=== PATIENT | female | born 1965 | race Caucasian/White ===

== ENCOUNTER 2017-02-28 19:59 | Emergency (ER) | payer OTHER ==
[~2017-02-28] VITALS: Ht 154.9 cm; Wt 95.2 kg
--- OUTSIDE RECORDS SUMMARY | ~2017-02-28 | XMS ---
Demographics + + + | Address | [address] | | | [place] [address] | + + + | Preferred Language | Unknown | + + + | Marital Status | Unknown | + + + | Gnosticist Affiliation | Unknown | + + + | Race | Unknown | + + + | Ethnic Group | Unknown | + + + Author + + + | Author | [facility] | + + + | Organization | [facility] | + + + | Address | [address] | | | [place] [address] | + + + | Phone | | + + + Care Team Providers + + + + | Care Oral Surgery Assistant Name | Role | Phone | + + + + Unavailable | Unavailable | + + + + PROBLEMS +---------+ + + +--------+ + + | Type | Condition | ICD9-CM | [id number] | Onset | Condition | SNOMED | | | | Code | Code | Dates | Status | Code | +---------+ + + +--------+ + + | Problem | Allergic | 477.8 | | | Active | [id number] | | | rhinitis | | | | | | | | due to | | | | | | | | other | | | | | | | | allergen | | | | | | +---------+ + + +--------+ + + | Problem | Presbyopia | 367.4 | | | Active | 37460123 | +---------+ + + +--------+ + + | Problem | Family | V18.0 | | | Active | [id number] | | | history of | | | | | | | | diabetes | | | | | | | | mellitus | | | | | | +---------+ + + +--------+ + + | Problem | Asthma | | J45.901 | | Active | 657822817 | | | exacerbati | | | | | | | | on | | | | | | +---------+ + + +--------+ + + | Problem | Obesity | 278.00 | | | Active | 929060264 | +---------+ + + +--------+ + + | Problem | Rotator | S43.429A | | | Active | 36559138 | | | cuff | | | | | | | | (capsule) | | | | | | | | sprain | | | | | | +---------+ + + +--------+ + + | Problem | INSOMNIA | 327.02 | | | Active | 45968791 | | | DT MENTAL | | | | | | | | DISOR | | | | | | +---------+ + + +--------+ + + | Problem | Muscle | | M62.830 | | Active | 226048643 | | | spasm of | | | | | | | | back | | | | | | +---------+ + + +--------+ + + | Problem | Positive | R20.2 | | | Active | 20065042 | | | Tinel's | | | | | | | | sign | | | | | | +---------+ + + +--------+ + + | Problem | Acute | M75.52 | | | Active | [id number] | | | bursitis | | | | | 400[address] | | | of left | | | | | | | | shoulder | | | | | | +---------+ + + +--------+ + + | Problem | Strep | J02.0 | | | Active | 26445343 | | | pharyngiti | | | | | | | | s | | | | | | +---------+ + + +--------+ + + | Problem | Menopause | | Z78.0 | | Active | 224937655 | +---------+ + + +--------+ + + | Problem | Tobacco | 305.1 | | | Active | 11617095 | | | abuse | | | | | | +---------+ + + +--------+ + + | Problem | Depressive | 311 | | | Active | 79121885 | | | disorder | | | | | | +---------+ + + +--------+ + + | Problem | Nasopharyn | 460 | | | Active | 59237675 | | | gitis | | | | | | | | acute | | | | | | +---------+ + + +--------+ + + | Problem | Dyspareuni | N94.1 | | | Active | 99751633 | | | a due to | | | | | | | | medical | | | | | | | | condition | | | | | | | | in female | | | | | | +---------+ + + +--------+ + + | Problem | Wrist | M25.531 | | | Active | 20091570 | | | pain, | | | | | | | | right | | | | | | +---------+ + + +--------+ + + | Problem | Vaginal | | N89.8 | | Active | 243399366 | | | discharge | | | | | | +---------+ + + +--------+ + + | Problem | Screen for | | Z11.3 | | Active | 203482629 | | | STD | | | | | | | | (sexually | | | | | | | | transmitte | | | | | | | | d disease) | | | | | | +---------+ + + +--------+ + + | Problem | Bronchitis | 466.0 | | | Active | 08679770 | | | , acute | | | | | | +---------+ + + +--------+ + + | Problem | RAD | J45.909 | | | Active | 03625971 | | | (reactive | | | | | | | | airway | | | | | | | | disease) | | | | | | +---------+ + + +--------+ + + | Problem | UTI (lower | 599.0 | | | Active | 65756747 | | | urinary | | | | | | | | tract | | | | | | | | infection) | | | | | | +---------+ + + +--------+ + + | Problem | Menopausal | 627.2 | | | Active | 92027846 | | | symptoms | | | | | | +---------+ + + +--------+ + + | Problem | Other | G89.29 | | | Active | 20947538 | | | chronic | | | | | | | | pain | | | | | | +---------+ + + +--------+ + + | Problem | Right | | R10.31 | | Active | 145690274 | | | lower | | | | | | | | quadrant | | | | | | | | pain | | | | | | +---------+ + + +--------+ + + | Problem | Lower back | M54.5 | | | Active | 388805802 | | | pain | | | | | | +---------+ + + +--------+ + + | Problem | Lower | R10.30 | | | Active | 91635582 | | | abdominal | | | | | | | | pain | | | | | | +---------+ + + +--------+ + + ALLERGIES Unknown Allergies SOCIAL HISTORY No smoking Hx information available PLAN OF CARE VITAL SIGNS MEDICATIONS + + + + + + + +--------+ | Medicati | Instruct | Dosage | Frequenc | Start | End Date | Duration | Status | | on | ions | | y | Date | | | | + + + + + + + +--------+ | Sertrali | Orally | 1 tablet | | 10 [place], | | 30 | Active | | ne HCl | Once a | | | 2017 | | day(s) | | | 50 mg | day x 1 | | | | | | | | | week, | | | | | | | | | then may | | | | | | | | | | | | | | | | | | increase | | | | | | | | | to 2 | | | | | | | | | tabs | | | | | | | | | daily. | | | | | | | | | max. | | | | | | | | | 100mg | | | | | | | | | daily. | | | | | | | + + + + + + + +--------+ RESULTS No Results PROCEDURES No Known procedures IMMUNIZATIONS No Known Immunizations"
--- OUTSIDE RECORDS SUMMARY | ~2017-02-28 | XMS ---
Demographics + + + | Address | [address] | | | [place] [address] | + + + | Preferred Language | Unknown | + + + | Marital Status | Unknown | + + + | Yazidism Affiliation | Unknown | + + + | Race | Unknown | + + + | Ethnic Group | Unknown | + + + Author + + + | Author | [facility] | + + + | Organization | [facility] | + + + | Address | [address] | | | [place] [address] | + + + | Phone | | + + + Care Team Providers + + + + | Care Community Services Officer Name | Role | Phone | + + + + Unavailable | Unavailable | + + + + PROBLEMS + + + + + + + + | Type | Condition | ICD9-CM | [id number] | Onset | Condition | SNOMED | | | | Code | Code | Dates | Status | Code | + + + + + + + + | Assessment | Bronchitis | | J40 | Nov, | Active | [id number] | | | | | | 2016 | | | + + + + + + + + | Assessment | Streptococ | | J02.0 | Nov, | Active | 94330284 | | | cindy | | | 2016 | | | | | pharyngiti | | | | | | | | s | | | | | | + + + + + + + + | Problem | Allergic | 477.8 | | | Active | 11342332 | | | rhinitis | | | | | | | | due to | | | | | | | | other | | | | | | | | allergen | | | | | | + + + + + + + + | Problem | Presbyopia | 367.4 | | | Active | 99768579 | + + + + + + + + | Problem | Right | | R10.31 | | Active | 246687657 | | | lower | | | | | | | | quadrant | | | | | | | | pain | | | | | | + + + + + + + + | Problem | Family | V18.0 | | | Active | 538161083 | | | history of | | | | | | | | diabetes | | | | | | | | mellitus | | | | | | + + + + + + + + | Problem | Asthma | | J45.901 | | Active | 545527318 | | | exacerbati | | | | | | | | on | | | | | | + + + + + + + + | Problem | Obesity | 278.00 | | | Active | 426657289 | + + + + + + + + | Problem | Rotator | S43.429A | | | Active | 47616179 | | | cuff | | | | | | | | (capsule) | | | | | | | | sprain | | | | | | + + + + + + + + | Problem | Acute | M75.52 | | | Active | 6390813460 | | | bursitis | | | | | [address]684 | | | of left | | | | | | | | shoulder | | | | | | + + + + + + + + | Problem | Muscle | | M62.830 | | Active | 963790036 | | | spasm of | | | | | | | | back | | | | | | + + + + + + + + | Problem | Menopause | | Z78.0 | | Active | 404850747 | + + + + + + + + | Problem | Vaginal | | N89.8 | | Active | 897221154 | | | discharge | | | | | | + + + + + + + + | Problem | Depressive | 311 | | | Active | 27833527 | | | disorder | | | | | | + + + + + + + + | Problem | Nasopharyn | 460 | | | Active | 28805118 | | | gitis | | | | | | | | acute | | | | | | + + + + + + + + | Problem | INSOMNIA | 327.02 | | | Active | 88765359 | | | DT MENTAL | | | | | | | | DISOR | | | | | | + + + + + + + + | Problem | Wrist | M25.531 | | | Active | 14058552 | | | pain, | | | | | | | | right | | | | | | + + + + + + + + | Problem | Positive | R20.2 | | | Active | 47456195 | | | Tinel's | | | | | | | | sign | | | | | | + + + + + + + + | Problem | Screen for | | Z11.3 | | Active | 571012545 | | | STD | | | | | | | | (sexually | | | | | | | | transmitte | | | | | | | | d disease) | | | | | | + + + + + + + + | Problem | Dyspareuni | N94.1 | | | Active | 08114278 | | | a due to | | | | | | | | medical | | | | | | | | condition | | | | | | | | in female | | | | | | + + + + + + + + | Problem | Menopausal | 627.2 | | | Active | 35635861 | | | symptoms | | | | | | + + + + + + + + | Problem | Bronchitis | 466.0 | | | Active | 94542031 | | | , acute | | | | | | + + + + + + + + | Problem | Tobacco | 305.1 | | | Active | 14731479 | | | abuse | | | | | | + + + + + + + + | Problem | UTI (lower | 599.0 | | | Active | 20200298 | | | urinary | | | | | | | | tract | | | | | | | | infection) | | | | | | + + + + + + + + | Problem | Lower | R10.30 | | | Active | 26808851 | | | abdominal | | | | | | | | pain | | | | | | + + + + + + + + | Problem | Other | G89.29 | | | Active | 45004289 | | | chronic | | | | | | | | pain | | | | | | + + + + + + + + | Problem | RAD | J45.909 | | | Active | 07217042 | | | (reactive | | | | | | | | airway | | | | | | | | disease) | | | | | | + + + + + + + + | Problem | Lower back | M54.5 | | | Active | 448485397 | | | pain | | | | | | + + + + + + + + ALLERGIES + + + + +--------+ | Substance | Reaction | Event Type | Date | Status | + + + + +--------+ | Ibuprofen | shortness of | Drug Allergy | Nov, | Active | | | breath | | | | + + + + +--------+ SOCIAL HISTORY No smoking Hx information available PLAN OF CARE + +---------+ | Activity | Details | + +---------+ +---+ | | +---+ + + + | Pending Test | Urine Culture, Routine | + + + | | prn,Reason: | + + + VITAL SIGNS + + + + | Height | 61 in | 2016-11-25 | + + + + | Weight | 202.8 lbs | 2016-11-25 | + + + + | BMI | 38.31 kg/m2 | 2016-11-25 | + + + + | Temperature | 98.8 degrees Fahrenheit | 2016-11-25 | + + + + | Heart Rate | 89 /min | 2016-11-25 | + + + + | Blood pressure systolic | 120 mm Hg | 2016-11-25 | + + + + | Blood pressure diastolic | 80 mm Hg | 2016-11-25 | + + + + MEDICATIONS + + + + + + + +--------+ | Medicati | Instruct | Dosage | Frequenc | Start | End Date | Duration | Status | | on | ions | | y | Date | | | | + + + + + + + +--------+ | Ventolin | | INHALE | | | | 30 | Active | | HFA | | TWO | | | | | | | 108MCG/A | | PUFFS BY | | | | | | | | | MOUTH | | | | | | | | | EVERY 4 | | | | | | | | | HOURS | | | | | | | | | NEEDED | | | | | | | | | FOR 30 | | | | | | | | | DAYS | | | | | | + + + + + + + +--------+ | Augmenti | p.o. | one | 12h | 09 Apr, | 19 Apr, | 10 days | Active | | n 875 mg | twice a | tablet | | 2017 | 2017 | | | | | day | | | | | | | + + + + + + + +--------+ | Singulai | Orally | 1 tablet | 24h | | | 30 | Active | | r 10 mg | Once a | | | | | day(s) | | | | day | | | | | | | + + + + + + + +--------+ | Fluticas | | USE ONE | | | | 30 | Active | | one | | SPRAY(S) | | | | | | | Propiona | | IN EACH | | | | | | | te 0.05% | | NOSTRIL | | | | | | | | | TWICE | | | | | | | | | DAILY | | | | | | | | | FOR 30 | | | | | | | | | DAYS | | | | | | + + + + + + + +--------+ | Flexeril | Oral prn | 1 tab | | | | | Active | | 10mg | | | | | | | | + + + + + + + +--------+ | Albutero | Inhalati | nebulize | 12h | | | | Active | | l-Ipratr | on bid | r | | | | | | | opium | | | | | | | | | .083 | | | | | | | | + + + + + + + +--------+ | Trazodon | Orally | 1 tablet | | 02 Nov, | | 90 days | Active | | e HCl 50 | Once a | at | | 2013 | | | | | mg | day at | bedtime | | | | | | | | hs | | | | | | | + + + + + + + +--------+ | Tramadol | Orally 1 | 1 tablet | | | | | Active | | HCl 50 | to 2 | as | | | | | | | MG | tabs | needed | | | | | | | | every 4 | | | | | | | | | to 6 | | | | | | | | | hours | | | | | | | + + + + + + + +--------+ | Capsaici | External | 1 | 8h | Oct, | 20 December, | 30 | Active | | n 0.1 % | ly Three | applicat | | 2016 | day(s) | | | | times a | ion to | | | | | | | | day | affected | | | | | | | | | area as | | | | | | | | | needed | | | | | | + + + + + + + +--------+ | PredniSO | | take 3 | | 09 Apr, | 12 Apr, | 3 days | Active | | NE 20 MG | | tabs po | | 2016 | 2016 | | | | | | daily | | | | | | | | | for 3 | | | | | | | | | days | | | | | | + + + + + + + +--------+ | Albutero | Inhalati | 2 puffs | 4h | Jan, | | 30 | Active | | l | on every | as | | 2014 | | day(s) | | | Sulfate | 4 hrs | needed | | | | | | | HFA 108 | | | | | | | | | (90 | | | | | | | | | Base) | | | | | | | | | MCG/ACT | | | | | | | | + + + + + + + +--------+ | Lidocain | External | 1 patch | 24h | 19 Nov, | | 30 days | Active | | e 5 % | ly Once | to | | 2015 | | | | | | a day | intact | | | | | | | | | skin | | | | | | | | | remove | | | | | | | | | after 12 | | | | | | | | | hours | | | | | | + + + + + + + +--------+ | Prempro | Orally | 1 tablet | 24h | 11 Aug, | | 30 | Active | | 0.625-2. | Once a | | | 2015 | | day(s) | | | 5 MG | day | | | | | | | + + + + + + + +--------+ | Flonase | Nasally | 1 puff | 12h | 22 Dec, | | 30 | Active | | 50 | bid | in each | | 2015 | | day(s) | | | MCG/ACT | | nostril | | | | | | + + + + + + + +--------+ RESULTS + +--------+ + + | Name | Result | Date | Reference Range | + +--------+ + + | Urinalysis, Dip | | 2016-11-25 | | | (IH) | | | | + +--------+ + + | Specific [place] | 1.020 | | | + +--------+ + + | pH | 5 | | | + +--------+ + + | Leukocytes | NEG | | | + +--------+ + + | Nitrite, Urine | NEG | | | + +--------+ + + | Protein | NEG | | | + +--------+ + + | Glucose | NORM | | | + +--------+ + + | Ketones | 15 | | | + +--------+ + + | Urobilingen, | NORM | | | | Semi-Qn | | | | + +--------+ + + | Bilirubin | NEG | | | + +--------+ + + | Blood Hemoglobin | 250 | | | | (BLD) | | | | + +--------+ + + | Strep Gp A Rapid | | 2016-11-25 | | | (IH) | | | | + +--------+ + + PROCEDURES + + + + + | Procedure | Date Ordered | Related Diagnosis | Body Site | + + + + + | LAB URINALYSIS (DIP | November 25, 2016 | | | | STICK ONLY | | | | + + + + + | STREP A ASSAY | November 25, 2016 | | | | W/OPTIC | | | | + + + + + | Est Level III | November 25, 2016 | | | | Intermediate | | | | + + + + + IMMUNIZATIONS No Known Immunizations"
--- OUTSIDE RECORDS SUMMARY | ~2017-02-28 | XMS ---
Demographics + + + | Address | [address] | | | [place] [address] | + + + | Preferred Language [...] | + + + | Organization | [facility] | + + + | Address | [address] | | | [place] [address] | + + + | Phone | | + + + Care Team Providers + + + + | Care Cane Burner Name | Role | Phone | + + + + Unavailable | Unavailable | + + + + PROBLEMS +---------+ + + +--------+ + + | Type | Condition | ICD9-CM | OSR74-QT | Onset | Condition | SNOMED | | | | Code | Code | Dates | Status | Code | +---------+ + + +--------+ + + | Problem | Allergic | 477.8 | | | Active | 93439821 | | | rhinitis | | | | | | | | due to | | | | | | | | other | | | | | | | | allergen | | | | | | +---------+ + + +--------+ + + | Problem | Presbyopia | 367.4 | | | Active | 53588705 | +---------+ + + +--------+ + + | Problem | Family | V18.0 | | | Active | 002946312 | | | history of | | | | | | | | diabetes | | | | | | | | mellitus | | | | | | +---------+ + + +--------+ + + | Problem | Asthma | | J45.901 | | Active | 302783365 | | | exacerbati | | | | | | | | on | | | | | | +---------+ + + +--------+ + + | Problem | Obesity | 278.00 | | | Active | 726951373 | +---------+ + + +--------+ + + | Problem | Rotator | S43.429A | | | Active | 48431543 | | | cuff | | | | | | | | (capsule) | | | | | | | | sprain | | | | | | +---------+ + + +--------+ + + | Problem | INSOMNIA | 327.02 | | | Active | 60957605 | | | DT MENTAL | | | | | | | | DISOR | | | | | | +---------+ + + +--------+ + + | Problem | Muscle | | M62.830 | | Active | 084190184 | | | spasm of | | | | | | | | back | | | | | | +---------+ + + +--------+ + + | Problem | Positive | R20.2 | | | Active | 47957244 | | | Tinel's | | | | | | | | sign | | | | | | +---------+ + + +--------+ + + | Problem | Acute | M75.52 | | | Active | [id number] | | | bursitis | | | | | [address] | | | of left | | | | | | | | shoulder | | | | | | +---------+ + + +--------+ + + | Problem | Strep | J02.0 | | | Active | 15269807 | | | pharyngiti | | | | | | | | s | | | | | | +---------+ + + +--------+ + + | Problem | Menopause | | Z78.0 | | Active | 623143701 | +---------+ + + +--------+ + + | Problem | Tobacco | 305.1 | | | Active | 85860844 | | | abuse | | | | | | +---------+ + + +--------+ + + | Problem | Depressive | 311 | | | Active | 08263780 | | | disorder | | | | | | +---------+ + + +--------+ + + | Problem | Nasopharyn | 460 | | | Active | 06868866 | | | gitis | | | | | | | | acute | | | | | | +---------+ + + +--------+ + + | Problem | Dyspareuni | N94.1 | | | Active | 52195576 | | | a due to | | | | | | | | medical | | | | | | | | condition | | | | | | | | in female | | | | | | +---------+ + + +--------+ + + | Problem | Wrist | M25.531 | | | Active | 42037421 | | | pain, | | | | | | | | right | | | | | | +---------+ + + +--------+ + + | Problem | Vaginal | | N89.8 | | Active | 450086694 | | | discharge | | | | | | +---------+ + + +--------+ + + | Problem | Screen for | | Z11.3 | | Active | 458121175 | | | STD | | | | | | | | (sexually | | | | | | | | transmitte | | | | | | | | d disease) | | | | | | +---------+ + + +--------+ + + | Problem | Bronchitis | 466.0 | | | Active | 31844524 | | | , acute | | | | | | +---------+ + + +--------+ + + | Problem | RAD | J45.909 | | | Active | 23312395 | | | (reactive | | | | | | | | airway | | | | | | | | disease) | | | | | | +---------+ + + +--------+ + + | Problem | UTI (lower | 599.0 | | | Active | 46233682 | | | urinary | | | | | | | | tract | | | | | | | | infection) | | | | | | +---------+ + + +--------+ + + | Problem | Menopausal | 627.2 | | | Active | 61440967 | | | symptoms | | | | | | +---------+ + + +--------+ + + | Problem | Other | G89.29 | | | Active | 98526944 | | | chronic | | | | | | | | pain | | | | | | +---------+ + + +--------+ + + | Problem | Right | | R10.31 | | Active | 156969303 | | | lower | | | | | | | | quadrant | | | | | | | | pain | | | | | | +---------+ + + +--------+ + + | Problem | Lower back | M54.5 | | | Active | [id number] | | | pain | | | | | | +---------+ + + +--------+ + + | Problem | Lower | R10.30 | | | Active | 21804604 | | | abdominal | | | | | | | | pain | | | | | | +---------+ + + +--------+ + + ALLERGIES Unknown Allergies SOCIAL HISTORY No smoking Hx information available PLAN OF CARE VITAL SIGNS MEDICATIONS Unknown Medications RESULTS No Results PROCEDURES No Known procedures IMMUNIZATIONS No Known Immunizations"
--- OUTSIDE RECORDS SUMMARY | ~2017-02-28 | XMS ---
Demographics + + + | Address | [address] | | | [place] [address] | + + + | Preferred Language | Unknown | + + + | Marital Status | Unknown | + + + | Yarsanism Affiliation | Unknown | + + + | Race | Unknown | + + + | Ethnic Group | Unknown | + + + Author + + + | Author | [facility] | + + + | Organization | [facility] | + + + | Address | [address] | | | [place] [address] | + + + | Phone | | + + + Care Team Providers + + + + | Care Manager Materials Management Name | Role | Phone | + + + + Unavailable | Unavailable | + + + + PROBLEMS +---------+ + + +--------+ + + | Type | Condition | ICD9-CM | [id number] | Onset | Condition | SNOMED | | | | Code | Code | Dates | Status | Code | +---------+ + + +--------+ + + | Problem | Allergic | 477.8 | | | Active | 86601863 | | | rhinitis | | | | | | | | due to | | | | | | | | other | | | | | | | | allergen | | | | | | +---------+ + + +--------+ + + | Problem | Presbyopia | 367.4 | | | Active | 35489668 | +---------+ + + +--------+ + + | Problem | Family | V18.0 | | | Active | 688875736 | | | history of | | | | | | | | diabetes | | | | | | | | mellitus | | | | | | +---------+ + + +--------+ + + | Problem | Asthma | | J45.901 | | Active | 027377090 | | | exacerbati | | | | | | | | on | | | | | | +---------+ + + +--------+ + + | Problem | Obesity | 278.00 | | | Active | 866186972 | +---------+ + + +--------+ + + | Problem | Rotator | S43.429A | | | Active | 73012248 | | | cuff | | | | | | | | (capsule) | | | | | | | | sprain | | | | | | +---------+ + + +--------+ + + | Problem | INSOMNIA | 327.02 | | | Active | 83435909 | | | DT MENTAL | | | | | | | | DISOR | | | | | | +---------+ + + +--------+ + + | Problem | Muscle | | M62.830 | | Active | 505580985 | | | spasm of | | | | | | | | back | | | | | | +---------+ + + +--------+ + + | Problem | Positive | R20.2 | | | Active | 64380681 | | | Tinel's | | | | | | | | sign | | | | | | +---------+ + + +--------+ + + | Problem | Acute | M75.52 | | | Active | 4144449232 | | | bursitis | | | | | 44888 | | | of left | | | | | | | | shoulder | | | | | | +---------+ + + +--------+ + + | Problem | Strep | J02.0 | | | Active | 39850169 | | | pharyngiti | | | | | | | | s | | | | | | +---------+ + + +--------+ + + | Problem | Menopause | | Z78.0 | | Active | 739976899 | +---------+ + + +--------+ + + | Problem | Tobacco | 305.1 | | | Active | 46474984 | | | abuse | | | | | | +---------+ + + +--------+ + + | Problem | Depressive | 311 | | | Active | 06455933 | | | disorder | | | | | | +---------+ + + +--------+ + + | Problem | Nasopharyn | 460 | | | Active | 37765318 | | | gitis | | | | | | | | acute | | | | | | +---------+ + + +--------+ + + | Problem | Dyspareuni | N94.1 | | | Active | 92514792 | | | a due to | | | | | | | | medical | | | | | | | | condition | | | | | | | | in female | | | | | | +---------+ + + +--------+ + + | Problem | Wrist | M25.531 | | | Active | 51463299 | | | pain, | | | | | | | | right | | | | | | +---------+ + + +--------+ + + | Problem | Vaginal | | N89.8 | | Active | 967750086 | | | discharge | | | | | | +---------+ + + +--------+ + + | Problem | Screen for | | Z11.3 | | Active | 808403245 | | | STD | | | | | | | | (sexually | | | | | | | | transmitte | | | | | | | | d disease) | | | | | | +---------+ + + +--------+ + + | Problem | Bronchitis | 466.0 | | | Active | 74731396 | | | , acute | | | | | | +---------+ + + +--------+ + + | Problem | RAD | J45.909 | | | Active | 83671060 | | | (reactive | | | | | | | | airway | | | | | | | | disease) | | | | | | +---------+ + + +--------+ + + | Problem | UTI (lower | 599.0 | | | Active | 38480787 | | | urinary | | | | | | | | tract | | | | | | | | infection) | | | | | | +---------+ + + +--------+ + + | Problem | Menopausal | 627.2 | | | Active | 72181298 | | | symptoms | | | | | | +---------+ + + +--------+ + + | Problem | Other | G89.29 | | | Active | 04427681 | | | chronic | | | | | | | | pain | | | | | | +---------+ + + +--------+ + + | Problem | Right | | R10.31 | | Active | 076307211 | | | lower | | | | | | | | quadrant | | | | | | | | pain | | | | | | +---------+ + + +--------+ + + | Problem | Lower back | M54.5 | | | Active | 447440748 | | | pain | | | | | | +---------+ + + +--------+ + + | Problem | Lower | R10.30 | | | Active | 52937190 | | | abdominal | | | | | | | | pain | | | | | | +---------+ + + +--------+ + + ALLERGIES + + + + +--------+ | Substance | Reaction | Event Type | Date | Status | + + + + +--------+ | Ibuprofen | shortness of | Drug Allergy | Jan, | Active | | | breath | | | | + + + + +--------+ SOCIAL HISTORY No smoking Hx information available PLAN OF CARE + +---------+ | Activity | Details | + +---------+ +---+ | | +---+ + + + | Follow Up | prn, 4 Weeks Reason:null | + + + VITAL SIGNS + + + + | Height | 61 in | 2017-02-13 | + + + + | Weight | 197.0 lbs | 2017-02-13 | + + + + | BMI | 37.22 kg/m2 | 2017-02-13 | + + + + | Temperature | 97.1 degrees Fahrenheit | 2017-02-13 | + + + + | Heart Rate | 95 /min | 2017-02-13 | + + + + | Blood pressure systolic | 131 mm Hg | 2017-02-13 | + + + + | Blood pressure diastolic | 80 mm Hg | 2017-02-13 | + + + + MEDICATIONS + [...] | 1 tablet | 24h | 11 Ramu, | | 30 | Active | | 0.625-2. | Once a | | | 2015 | | day(s) | | | 5 MG | day | | | | | | | + + + + + + + +--------+ | Flonase | Nasally | 1 puff | 12h | Jul, | | 30 | Active | | [...] + + | Est Level III | February 13, 2017 | | | | Intermediate | | | | + + + + + IMMUNIZATIONS No Known Immunizations"
--- OUTSIDE RECORDS SUMMARY | ~2017-02-28 | XMS ---
Demographics + + + | Address | [address] | | | [place] [address] | + + + | Preferred Language | Unknown | + + + | Marital Status | Unknown | + + + | Jain Affiliation | Unknown | + + + | Race | Unknown | + + + | Ethnic Group | Unknown | + + + Author + + + | Author | [facility] | + + + | Organization | [facility] | + + + | Address | [address] | | | [place] [address] | + + + | Phone | | + + + Care Team Providers + + + + | Care Mortar Mixer Name | Role | Phone | + + + + Unavailable | Unavailable | + + + + PROBLEMS + + + + + + + + | Type | Condition | ICD9-CM | [id number] | Onset | Condition | SNOMED | | | | Code | Code | Dates | Status | Code | + + + + + + + + | Assessment | Asthma | | J45.901 | 10 Nov, | Active | 226495155 | | | exacerbati | | | 2017 | | | | | on | | | | | | + + + + + + + + | Problem | Allergic | 477.8 | | | Active | 82124637 | | | rhinitis | | | | | | | | due to | | | | | | | | other | | | | | | | | allergen | | | | | | + + + + + + + + | Problem | Presbyopia | 367.4 | | | Active | 61201097 | + + + + + + + + | Problem | Family | V18.0 | | | Active | 906985280 | | | history of | | | | | | | | diabetes | | | | | | | | mellitus | | | | | | + + + + + + + + | Problem | Asthma | | J45.901 | | Active | 691237317 | | | exacerbati | | | | | | | | on | | | | | | + + + + + + + + | Problem | Obesity | 278.00 | | | Active | 918509412 | + + + + + + + + | Problem | Rotator | S43.429A | | | Active | 17746431 | | | cuff | | | | | | | | (capsule) | | | | | | | | sprain | | | | | | + + + + + + + + | Problem | INSOMNIA | 327.02 | | | Active | 82330036 | | | DT MENTAL | | | | | | | | DISOR | | | | | | + + + + + + + + | Problem | Muscle | | M62.830 | | Active | 589946713 | | | spasm of | | | | | | | | back | | | | | | + + + + + + + + | Problem | Positive | R20.2 | | | Active | 27293993 | | | Tinel's | | | | | | | | sign | | | | | | + + + + + + + + | Problem | Acute | M75.52 | | | Active | 0704155402 | | | bursitis | | | | | [address] | | | of left | | | | | | | | shoulder | | | | | | + + + + + + + + | Problem | Strep | J02.0 | | | Active | 43975047 | | | pharyngiti | | | | | | | | s | | | | | | + + + + + + + + | Problem | Menopause | | Z78.0 | | Active | 182564890 | + + + + + + + + | Problem | Tobacco | 305.1 | | | Active | 48093787 | | | abuse | | | | | | + + + + + + + + | Problem | Depressive | 311 | | | Active | 03274247 | | | disorder | | | | | | + + + + + + + + | Problem | Nasopharyn | 460 | | | Active | 81128968 | | | gitis | | | | | | | | acute | | | | | | + + + + + + + + | Problem | Dyspareuni | N94.1 | | | Active | 31632612 | | | a due to | | | | | | | | medical | | | | | | | | condition | | | | | | | | in female | | | | | | + + + + + + + + | Problem | Wrist | M25.531 | | | Active | 51168310 | | | pain, | | | | | | | | right | | | | | | + + + + + + + + | Problem | Vaginal | | N89.8 | | Active | 819491325 | | | discharge | | | | | | + + + + + + + + | Problem | Screen for | | Z11.3 | | Active | 114370519 | | | STD | | | | | | | | (sexually | | | | | | | | transmitte | | | | | | | | d disease) | | | | | | + + + + + + + + | Problem | Bronchitis | 466.0 | | | Active | 14673570 | | | , acute | | | | | | + + + + + + + + | Problem | RAD | J45.909 | | | Active | 38921390 | | | (reactive | | | | | | | | airway | | | | | | | | disease) | | | | | | + + + + + + + + | Problem | UTI (lower | 599.0 | | | Active | 23257580 | | | urinary | | | | | | | | tract | | | | | | | | infection) | | | | | | + + + + + + + + | Problem | Menopausal | 627.2 | | | Active | 73094066 | | | symptoms | | | | | | + + + + + + + + | Problem | Other | G89.29 | | | Active | 03291858 | | | chronic | | | | | | | | pain | | | | | | + + + + + + + + | Problem | Right | | R10.31 | | Active | 328289550 | | | lower | | | | | | | | quadrant | | | | | | | | pain | | | | | | + + + + + + + + | Problem | Lower back | M54.5 | | | Active | 747310976 | | | pain | | | | | | + + + + + + + + | Problem | Lower | R10.30 | | | Active | 98737861 | | | abdominal | | | [...] information available PLAN OF CARE VITAL SIGNS + + + + | Height | 61 in | 2016-11-26 | + + + + | Weight | 201.8 lbs | 2016-11-26 | + + + + | BMI | 38.13 kg/m2 | 2016-11-26 | + + + + | Temperature | 97.7 degrees Fahrenheit | 2016-11-26 | + + + + | Heart Rate | 93 /min | 2016-11-26 | + + + + | Blood pressure systolic | 115 mm Hg | 2016-11-26 | + + + + | Blood pressure diastolic | 66 mm Hg | 2016-11-26 | + + + + MEDICATIONS + [...] | Orally | 1 tablet | | Nov, | | 90 days | Active [...] External | 1 patch | 24h | Nov, | | 30 days | Active [...] p.o. | one | 12h | 09 Nov, | 19 Apr, | 10 days | Active | | n 875 mg | twice a | tablet | | 2016 | 2016 | | | | | day | | | | | | | + + + + + + + +--------+ | Capsaici | External | 1 | 8h | Oct, | 05 January, | 30 | Active | | n 0.1 % | ly Three | applicat | | 2016 | 2016 | day(s) | | | [...] Orally | 1 tablet | 24h | Aug, | | 30 | Active | [...] MG | | tabs po | | 2017 | 2017 | | | | | | daily [...] + | Est Level III | November 26, 2016 | | | | Intermediate | | | | + + + + + IMMUNIZATIONS No Known Immunizations"
--- OUTSIDE RECORDS SUMMARY | ~2017-02-28 | XMS ---
Demographics + + + | Address | [address] | | | [place] [address] | + + + | Preferred Language | Unknown | + + + | Marital Status | Unknown | + + + | Jew Affiliation | Unknown | + + + | Race | Unknown | + + + | Ethnic Group | Unknown | + + + Author + + + | Author | [facility] | + + + | Organization | [facility] | + + + | Address | [address] | | | [place] [address] | + + + | Phone | | + + + Care Team Providers + + + + | Care Industrial Chemistry Teacher Name | Role | Phone | + + + + Unavailable | Unavailable | + + + + PROBLEMS +---------+ + + +--------+ + + | Type | Condition | ICD9-CM | [id number] | Onset | Condition | SNOMED | | | | Code | Code | Dates | Status | Code | +---------+ + + +--------+ + + | Problem | Allergic | 477.8 | | | Active | 78212272 | | | rhinitis | | | | | | | | due to | | | | | | | | other | | | | | | | | allergen | | | | | | +---------+ + + +--------+ + + | Problem | Presbyopia | 367.4 | | | Active | 46834894 | +---------+ + + +--------+ + + | Problem | Family | V18.0 | | | Active | 451747456 | | | history of | | | | | | | | diabetes | | | | | | | | mellitus | | | | | | +---------+ + + +--------+ + + | Problem | Asthma | | J45.901 | | Active | 972417436 | | | exacerbati | | | | | | | | on | | | | | | +---------+ + + +--------+ + + | Problem | Obesity | 278.00 | | | Active | 944022451 | +---------+ + + +--------+ + + | Problem | Rotator | S43.429A | | | Active | 28335661 | | | cuff | | | | | | | | (capsule) | | | | | | | | sprain | | | | | | +---------+ + + +--------+ + + | Problem | INSOMNIA | 327.02 | | | Active | 66938711 | | | DT MENTAL | | | | | | | | DISOR | | | | | | +---------+ + + +--------+ + + | Problem | Muscle | | M62.830 | | Active | 287743471 | | | spasm of | | | | | | | | back | | | | | | +---------+ + + +--------+ + + | Problem | Positive | R20.2 | | | Active | 49977933 | | | Tinel's | | | | | | | | sign | | | | | | +---------+ + + +--------+ + + | Problem | Acute | M75.52 | | | Active | 8573619932 | | | bursitis | | | | | 17103 | | | of left | | | | | | | | shoulder | | | | | | +---------+ + + +--------+ + + | Problem | Strep | J02.0 | | | Active | 75901207 | | | pharyngiti | | | | | | | | s | | | | | | +---------+ + + +--------+ + + | Problem | Menopause | | Z78.0 | | Active | 214037263 | +---------+ + + +--------+ + + | Problem | Tobacco | 305.1 | | | Active | 63843850 | | | abuse | | | | | | +---------+ + + +--------+ + + | Problem | Depressive | 311 | | | Active | 46149489 | | | disorder | | | | | | +---------+ + + +--------+ + + | Problem | Nasopharyn | 460 | | | Active | 78535924 | | | gitis | | | | | | | | acute | | | | | | +---------+ + + +--------+ + + | Problem | Dyspareuni | N94.1 | | | Active | 48062277 | | | a due to | | | | | | | | medical | | | | | | | | condition | | | | | | | | in female | | | | | | +---------+ + + +--------+ + + | Problem | Wrist | M25.531 | | | Active | 27934800 | | | pain, | | | | | | | | right | | | | | | +---------+ + + +--------+ + + | Problem | Vaginal | | N89.8 | | Active | 950041231 | | | discharge | | | | | | +---------+ + + +--------+ + + | Problem | Screen for | | Z11.3 | | Active | 021534612 | | | STD | | | | | | | | (sexually | | | | | | | | transmitte | | | | | | | | d disease) | | | | | | +---------+ + + +--------+ + + | Problem | Bronchitis | 466.0 | | | Active | 84856799 | | | , acute | | | | | | +---------+ + + +--------+ + + | Problem | RAD | J45.909 | | | Active | 33778273 | | | (reactive | | | | | | | | airway | | | | | | | | disease) | | | | | | +---------+ + + +--------+ + + | Problem | UTI (lower | 599.0 | | | Active | 79927175 | | | urinary | | | | | | | | tract | | | | | | | | infection) | | | | | | +---------+ + + +--------+ + + | Problem | Menopausal | 627.2 | | | Active | 82865309 | | | symptoms | | | | | | +---------+ + + +--------+ + + | Problem | Other | G89.29 | | | Active | 63520394 | | | chronic | | | | | | | | pain | | | | | | +---------+ + + +--------+ + + | Problem | Right | | R10.31 | | Active | 540559567 | | | lower | | | | | | | | quadrant | | | | | | | | pain | | | | | | +---------+ + + +--------+ + + | Problem | Lower back | M54.5 | | | Active | 073517330 | | | pain | | | | | | +---------+ + + +--------+ + + | Problem | Lower | R10.30 | | | Active | 90742826 | | | abdominal | | | [...] + + + + + +--------+ | Macrobid | Orally | 1 | 12h | 02 December, | 7 December, | 5 day(s) | Active | | 100 mg | BID | capsule | | 2016 | 2016 | | | | | | with | | | | | | | | | food | | | | | | + + + + + + + +--------+ RESULTS No Results PROCEDURES No Known procedures IMMUNIZATIONS No Known Immunizations"
[~2017-02-28 19:59] MED LIST: AFRIN15 ML NAS; ALBUTEROL SULF8.5 GM INH; ALBUTEROL2.5 MG/3 M INH; BENADRYL25 MG PO; CEPHALEXIN500 MG PO; CHLORTABS4 MG PO; CYCLOBENZAPRINE10 MG PO; CYCLOBENZAPRINE5 MG PO; CYMBALTA30 MG PO; DOXYCYCLINE HY100 MG PO; DUONEB 0.5 MG-33 ML INH; FLAGYL250 MG PO; FLOVENT DISKU100 MCG INH; IPRAT-ALBUT 0.5-3 ML INH; MACROBID 100 M100 MG PO; MELOXICAM15 MG PO; NORCO 5-325 TA1 EACH PO; PENICILLIN V P500 MG PO; PREDNISONE20 MG PO; PREMPHASE 0.621 EACH PO; PREMPRO 0.45-11 EACH PO; PREMPRO PO; ROBITUSSIN LON118 ML PO; SEPTRA DS TABL1 EACH PO; SERTRALINE HCL100 MG PO; SERTRALINE HCL50 MG PO; SINGULAIR10 MG PO; SUDAFED 12 HOU120 MG PO; TRAMADOL HCL50 MG PO; TRAZODONE HCL50 MG PO; WELLBUTRIN XL150 MG PO
--- NOTE | 2017-03-01 12:27 | EKG ---
[facility] [address] [place] [address] Signed Normal sinus rhythm Inferior infarct , age undetermined Possible Anterior infarct , age undetermined Abnormal ECG When compared with ECG of 29-OCT-2016 18:30, Inferior infarct is now present Confirmed by JEAN BRADFORD MD ([id number]) on 03/01/2017 12:27:27 PM Electronically Signed By: JEAN BRADFORD MD 03/01/17 1227 PATIENT NAME: KARYNFLORIAN Electrocardiogram DATE OF : 67 PHYSICIAN: JEAN BRADFORD MD REPORT #: [id number] REPORT IS CONFIDENTIAL AND NOT TO BE RELEASED WITHOUT AUTHORIZATION
== END 2017-02-28 21:45 | disposition home or self-care (01) ==
LOC: ED 19:59
DX: M79.622 Pain in left upper arm (principal); J45.909 Unspecified asthma, uncomplicated; F17.200 Nicotine dependence, unspecified, uncomplicated; Z88.6 Allergy status to analgesic agent; Z79.899 Other long term (current) drug therapy
CPT/HCPCS: 71020; 80053; 84484; 85025; 93005; 93010; 99284

== ENCOUNTER 2017-06-22 11:06 | Emergency (ER) | payer OTHER ==
[~2017-06-22] VITALS: Ht 154.9 cm; Wt 88.5 kg
== END 2017-06-22 15:50 | disposition home or self-care (01) ==
LOC: ED 11:06
DX: K62.5 Hemorrhage of anus and rectum (principal); J45.909 Unspecified asthma, uncomplicated; F17.200 Nicotine dependence, unspecified, uncomplicated; Z88.6 Allergy status to analgesic agent; Z79.899 Other long term (current) drug therapy
CPT/HCPCS: 74177; 80053; 81001; 85025; 96374; 96375; 99284; J1170; J2405; J7030; Q9967

== ENCOUNTER 2017-08-20 12:37 | Emergency (ER) | payer OTHER ==
[~2017-08-20] VITALS: Ht 154.9 cm; Wt 91.6 kg
--- OUTSIDE RECORDS SUMMARY | ~2017-08-20 | XMS ---
Demographics + + + | Address | [address] | | | [place] [address] | + + + | Preferred Language | Unknown | + + + | Marital Status | Unknown | + + + | Amish Affiliation | Unknown | + + + | Race | Unknown | + + + | Ethnic Group | Unknown | + + + Author + + + | Author | [facility] | + + + | Organization | [facility] | + + + | Address | [address] | | | [place] [address] | + + + | Phone | | + + + Care Team Providers + + + + | Care It Application Support Analyst Name | Role | Phone | + + + + Unavailable | Unavailable | + + + + PROBLEMS +---------+ + + +--------+ + + | Type | Condition | ICD9-CM | [id number] | Onset | Condition | SNOMED | | | | Code | Code | Dates | Status | Code | +---------+ + + +--------+ + + | Problem | Allergic | 477.8 | | | Active | 25367521 | | | rhinitis | | | | | | | | due to | | | | | | | | other | | | | | | | | allergen | | | | | | +---------+ + + +--------+ + + | Problem | Presbyopia | 367.4 | | | Active | 55725206 | +---------+ + + +--------+ + + | Problem | Family | V18.0 | | | Active | 903419912 | | | history of | | | | | | | | diabetes | | | | | | | | mellitus | | | | | | +---------+ + + +--------+ + + | Problem | Obesity | 278.00 | | | Active | 790020292 | +---------+ + + +--------+ + + | Problem | Rotator | S43.429A | | | Active | 01996630 | | | cuff | | | | | | | | (capsule) | | | | | | | | sprain | | | | | | +---------+ + + +--------+ + + | Problem | INSOMNIA | 327.02 | | | Active | 51306946 | | | DT MENTAL | | | | | | | | DISOR | | | | | | +---------+ + + +--------+ + + | Problem | Muscle | | M62.830 | | Active | 643440927 | | | spasm of | | | | | | | | back | | | | | | +---------+ + + +--------+ + + | Problem | Nasopharyn | 460 | | | Active | 23064618 | | | gitis | | | | | | | | acute | | | | | | +---------+ + + +--------+ + + | Problem | Acute | M75.52 | | | Active | 8362827761 | | | bursitis | | | | | [address] | | | of left | | | | | | | | shoulder | | | | | | +---------+ + + +--------+ + + | Problem | Wrist | M25.531 | | | Active | 61175971 | | | pain, | | | | | | | | right | | | | | | +---------+ + + +--------+ + + | Problem | Positive | R20.2 | | | Active | 97256590 | | | Tinel's | | | | | | | | sign | | | | | | +---------+ + + +--------+ + + | Problem | Walking | J18.9 | | | Active | 794889619 | | | pneumonia | | | | | | +---------+ + + +--------+ + + | Problem | Strep | J02.0 | | | Active | 09179976 | | | pharyngiti | | | | | | | | s | | | | | | +---------+ + + +--------+ + + | Problem | UTI (lower | 599.0 | | | Active | 51767386 | | | urinary | | | | | | | | tract | | | | | | | | infection) | | | | | | +---------+ + + +--------+ + + | Problem | Tobacco | 305.1 | | | Active | 90891122 | | | abuse | | | | | | +---------+ + + +--------+ + + | Problem | Depressive | 311 | | | Active | 81532670 | | | disorder | | | | | | +---------+ + + +--------+ + + | Problem | Screen for | | Z11.3 | | Active | 188881148 | | | STD | | | | | | | | (sexually | | | | | | | | transmitte | | | | | | | | d disease) | | | | | | +---------+ + + +--------+ + + | Problem | Dyspareuni | N94.1 | | | Active | 09699564 | | | a due to | | | | | | | | medical | | | | | | | | condition | | | | | | | | in female | | | | | | +---------+ + + +--------+ + + | Problem | Menopause | | Z78.0 | | Active | 246514839 | +---------+ + + +--------+ + + | Problem | Vaginal | | N89.8 | | Active | 792267384 | | | discharge | | | | | | +---------+ + + +--------+ + + | Problem | RAD | J45.909 | | | Active | 09056901 | | | (reactive | | | | | | | | airway | | | | | | | | disease) | | | | | | +---------+ + + +--------+ + + | Problem | Lower back | M54.5 | | | Active | 606817855 | | | pain | | | | | | +---------+ + + +--------+ + + | Problem | Menopausal | 627.2 | | | Active | 22199415 | | | symptoms | | | | | | +---------+ + + +--------+ + + | Problem | Bronchitis | 466.0 | | | Active | 36652257 | | | , acute | | | | | | +---------+ + + +--------+ + + | Problem | Right | | R10.31 | | Active | 021115890 | | | lower | | | | | | | | quadrant | | | | | | | | pain | | | | | | +---------+ + + +--------+ + + | Problem | Asthma | | J45.901 | | Active | 999722390 | | | exacerbati | | | | | | | | on | | | | | | +---------+ + + +--------+ + + | Problem | Lower | R10.30 | | | Active | 04905059 | | | abdominal | | | | | | | | pain | | | | | | +---------+ + + +--------+ + + | Problem | Other | G89.29 | | | Active | 97741653 | | | chronic | | | | | | | | pain | | | | | | +---------+ + + +--------+ + + ALLERGIES Unknown Allergies SOCIAL HISTORY No smoking Hx information available PLAN OF CARE VITAL SIGNS MEDICATIONS Unknown Medications RESULTS No Results PROCEDURES No Known procedures IMMUNIZATIONS No Known Immunizations"
--- OUTSIDE RECORDS SUMMARY | ~2017-08-20 | XMS ---
Demographics + + + | Address | [address] | | | [place] [address] | + + + | Preferred Language | Unknown | + + + | Marital Status | Unknown | + + + | Episcopal Affiliation | Unknown | + + + | Race | Unknown | + + + | Ethnic Group | Unknown | + + + Author + + + | Author | [facility] | + + + | Organization | [facility] | + + + | Address | [address] | | | [place] [address] | + + + | Phone | | + + + Care Team Providers + + + + | Care Assembler Production Line Name | Role | Phone | + + + + Unavailable | Unavailable | + + + + PROBLEMS +---------+ + + +--------+ + + | Type | Condition | ICD9-CM | [id number] | Onset | Condition | SNOMED | | | | Code | Code | Dates | Status | Code | +---------+ + + +--------+ + + | Problem | Allergic | 477.8 | | | Active | 79679486 | | | rhinitis | | | | | | | | due to | | | | | | | | other | | | | | | | | allergen | | | | | | +---------+ + + +--------+ + + | Problem | Presbyopia | 367.4 | | | Active | 64286339 | +---------+ + + +--------+ + + | Problem | Family | V18.0 | | | Active | 392774013 | | | history of | | | | | | | | diabetes | | | | | | | | mellitus | | | | | | +---------+ + + +--------+ + + | Problem | Obesity | 278.00 | | | Active | 494269650 | +---------+ + + +--------+ + + | Problem | Rotator | S43.429A | | | Active | 39058937 | | | cuff | | | | | | | | (capsule) | | | | | | | | sprain | | | | | | +---------+ + + +--------+ + + | Problem | INSOMNIA | 327.02 | | | Active | 87252128 | | | DT MENTAL | | | | | | | | DISOR | | | | | | +---------+ + + +--------+ + + | Problem | Muscle | | M62.830 | | Active | 521592113 | | | spasm of | | | | | | | | back | | | | | | +---------+ + + +--------+ + + | Problem | Nasopharyn | 460 | | | Active | 89808369 | | | gitis | | | | | | | | acute | | | | | | +---------+ + + +--------+ + + | Problem | Acute | M75.52 | | | Active | 5367490978 | | | bursitis | | | | | 13872 | | | of left | | | | | | | | shoulder | | | | | | +---------+ + + +--------+ + + | Problem | Wrist | M25.531 | | | Active | 62280616 | | | pain, | | | | | | | | right | | | | | | +---------+ + + +--------+ + + | Problem | Positive | R20.2 | | | Active | 27992581 | | | Tinel's | | | | | | | | sign | | | | | | +---------+ + + +--------+ + + | Problem | Walking | J18.9 | | | Active | 695204350 | | | pneumonia | | | | | | +---------+ + + +--------+ + + | Problem | Strep | J02.0 | | | Active | 90812298 | | | pharyngiti | | | | | | | | s | | | | | | +---------+ + + +--------+ + + | Problem | UTI (lower | 599.0 | | | Active | 79943491 | | | urinary | | | | | | | | tract | | | | | | | | infection) | | | | | | +---------+ + + +--------+ + + | Problem | Tobacco | 305.1 | | | Active | 80696565 | | | abuse | | | | | | +---------+ + + +--------+ + + | Problem | Depressive | 311 | | | Active | 94663120 | | | disorder | | | | | | +---------+ + + +--------+ + + | Problem | Screen for | | Z11.3 | | Active | 542973038 | | | STD | | | | | | | | (sexually | | | | | | | | transmitte | | | | | | | | d disease) | | | | | | +---------+ + + +--------+ + + | Problem | Dyspareuni | N94.1 | | | Active | 91762338 | | | a due to | | | | | | | | medical | | | | | | | | condition | | | | | | | | in female | | | | | | +---------+ + + +--------+ + + | Problem | Menopause | | Z78.0 | | Active | 988009830 | +---------+ + + +--------+ + + | Problem | Vaginal | | N89.8 | | Active | 036171325 | | | discharge | | | | | | +---------+ + + +--------+ + + | Problem | RAD | J45.909 | | | Active | 35556126 | | | (reactive | | | | | | | | airway | | | | | | | | disease) | | | | | | +---------+ + + +--------+ + + | Problem | Lower back | M54.5 | | | Active | 300796012 | | | pain | | | | | | +---------+ + + +--------+ + + | Problem | Menopausal | 627.2 | | | Active | 91059700 | | | symptoms | | | | | | +---------+ + + +--------+ + + | Problem | Bronchitis | 466.0 | | | Active | 25502789 | | | , acute | | | | | | +---------+ + + +--------+ + + | Problem | Right | | R10.31 | | Active | 360909195 | | | lower | | | | | | | | quadrant | | | | | | | | pain | | | | | | +---------+ + + +--------+ + + | Problem | Asthma | | J45.901 | | Active | 530524535 | | | exacerbati | | | | | | | | on | | | | | | +---------+ + + +--------+ + + | Problem | Lower | R10.30 | | | Active | 61957662 | | | abdominal | | | | | | | | pain | | | | | | +---------+ + + +--------+ + + | Problem | Other | G89.29 | | | Active | 40534049 | | | chronic | | | | | | | | pain | | | | | | +---------+ + + +--------+ + + ALLERGIES + + + + +--------+ | Substance | Reaction | Event Type | Date | Status | + + + + +--------+ | Ibuprofen | shortness of | Drug Allergy | Mar, | Active | | | breath | | | | + + + + +--------+ SOCIAL HISTORY No smoking Hx information available PLAN OF CARE + +---------+ | Activity | Details | + +---------+ +---+ | | +---+ + + + | Follow Up | prn, 2 - 3 Days if not better Reason:null | + + + VITAL SIGNS + + + + | Height | 61 in | 2017-03-19 | + + + + | Weight | 190.6 lbs | 2017-03-19 | + + + + | BMI | 36.01 kg/m2 | 2017-03-19 | + + + + | Temperature | 99.4 degrees Fahrenheit | 2017-03-19 | + + + + | Heart Rate | 94 /min | 2017-03-19 | + + + + | Blood pressure systolic | 123 mm Hg | 2017-03-19 | + + + + | Blood pressure diastolic | 70 mm Hg | 2017-03-19 | + + + + MEDICATIONS + [...] + + + + + +--------+ | Tessalon | Orally | 1 | 8h | | | 5 day(s) | Active | | Perles | Three | capsule | | | | | | | 100 mg | times a | as | | | | | | | | day | needed | | | | | | + + + + + + + +--------+ | PredniSO | Orally | 1 tablet | 24h | | | 5 day(s) | Active | | NE 20mg | Once a | | | | | | | | | day | | | | | | | + + + + + + + +--------+ | Albutero | Inhalati | 2 puffs | 4h | 26 Samuel, | | 30 | Active | | l | on every | as | | 2013 | | day(s) | | | Sulfate [...] HCl | Once a | | | 2016 | | day(s) | | | 50 [...] + + + + + +--------+ | Azithrom | Orally | 2 | 24h | 01 Aug, | 6 Aug, | 5 day(s) | Active | | ycin 250 | Once a | tablets | | 2016 | 2017 | | | | MG | day | on the | | | | | | | | | first | | | | | | | | | day, | | | | | | | | | then 1 | | | | | | | | | tablet | | | | | | | | | daily | | | | | | | | | for 4 | | | | | | | | | days | | | | | | + + + + + + + +--------+ | Flonase | Nasally | 1 puff | 12h | 22 Dec, | | 30 | Active | | 50 | bid | in each | | 2014 | | day(s) | | | MCG/ACT | | nostril | | | | | | + + + + + + + +--------+ | Lidocain | External | 1 patch | 24h | 19 Apr, | | 30 days | Active | [...] Orally | 1 tablet | | 02 Apr, | | 90 days | Active | | e HCl 50 | Once a | at | | 2014 | | | | | mg | [...] + + +--------+ RESULTS No Results PROCEDURES + + + + + | Procedure | Date Ordered | Related Diagnosis | Body Site | + + + + + | Est Level III | Mar 19, 2017 | | | | Intermediate | | | | + + + + + IMMUNIZATIONS No Known Immunizations"
--- OUTSIDE RECORDS SUMMARY | ~2017-08-20 | XMS ---
Demographics + + + | Address | [address] | | | [place] [address] | + + + | Preferred Language | Unknown | + + + | Marital Status | Unknown | + + + | Christianity Affiliation | Unknown | + + + | Race | Unknown | + + + | Ethnic Group | Unknown | + + + Author + + + | Author | [facility] | + + + | Organization | [facility] | + + + | Address | [address] | | | [place] [address] | + + + | Phone | | + + + Care Team Providers + + + + | Care Executive Consultant Name | Role | Phone | + + + + Unavailable | Unavailable | + + + + PROBLEMS +---------+ + + +--------+ + + | Type | Condition | ICD9-CM | [id number] | Onset | Condition | SNOMED | | | | Code | Code | Dates | Status | Code | +---------+ + + +--------+ + + | Problem | Allergic | 477.8 | | | Active | 84859771 | | | rhinitis | | | | | | | | due to | | | | | | | | other | | | | | | | | allergen | | | | | | +---------+ + + +--------+ + + | Problem | Presbyopia | 367.4 | | | Active | 88995359 | +---------+ + + +--------+ + + | Problem | Family | V18.0 | | | Active | 154344517 | | | history of | | | | | | | | diabetes | | | | | | | | mellitus | | | | | | +---------+ + + +--------+ + + | Problem | Asthma | | J45.901 | | Active | 564772666 | | | exacerbati | | | | | | | | on | | | | | | +---------+ + + +--------+ + + | Problem | Obesity | 278.00 | | | Active | 276357220 | +---------+ + + +--------+ + + | Problem | Rotator | S43.429A | | | Active | 73609869 | | | cuff | | | | | | | | (capsule) | | | | | | | | sprain | | | | | | +---------+ + + +--------+ + + | Problem | INSOMNIA | 327.02 | | | Active | 12239502 | | | DT MENTAL | | | | | | | | DISOR | | | | | | +---------+ + + +--------+ + + | Problem | Muscle | | M62.830 | | Active | 317822852 | | | spasm of | | | | | | | | back | | | | | | +---------+ + + +--------+ + + | Problem | Positive | R20.2 | | | Active | 65046470 | | | Tinel's | | | | | | | | sign | | | | | | +---------+ + + +--------+ + + | Problem | Acute | M75.52 | | | Active | 2411128566 | | | bursitis | | | | | 425[address] | | | of left | | | | | | | | shoulder | | | | | | +---------+ + + +--------+ + + | Problem | Strep | J02.0 | | | Active | 06423854 | | | pharyngiti | | | | | | | | s | | | | | | +---------+ + + +--------+ + + | Problem | Menopause | | Z78.0 | | Active | 967277458 | +---------+ + + +--------+ + + | Problem | Tobacco | 305.1 | | | Active | 38256456 | | | abuse | | | | | | +---------+ + + +--------+ + + | Problem | Depressive | 311 | | | Active | 60599945 | | | disorder | | | | | | +---------+ + + +--------+ + + | Problem | Nasopharyn | 460 | | | Active | 33054117 | | | gitis | | | | | | | | acute | | | | | | +---------+ + + +--------+ + + | Problem | Dyspareuni | N94.1 | | | Active | 85067726 | | | a due to | | | | | | | | medical | | | | | | | | condition | | | | | | | | in female | | | | | | +---------+ + + +--------+ + + | Problem | Wrist | M25.531 | | | Active | 28604330 | | | pain, | | | | | | | | right | | | | | | +---------+ + + +--------+ + + | Problem | Vaginal | | N89.8 | | Active | 639070819 | | | discharge | | | | | | +---------+ + + +--------+ + + | Problem | Screen for | | Z11.3 | | Active | 737898734 | | | STD | | | | | | | | (sexually | | | | | | | | transmitte | | | | | | | | d disease) | | | | | | +---------+ + + +--------+ + + | Problem | Bronchitis | 466.0 | | | Active | 75644042 | | | , acute | | | | | | +---------+ + + +--------+ + + | Problem | RAD | J45.909 | | | Active | 23962658 | | | (reactive | | | | | | | | airway | | | | | | | | disease) | | | | | | +---------+ + + +--------+ + + | Problem | UTI (lower | 599.0 | | | Active | 59462853 | | | urinary | | | | | | | | tract | | | | | | | | infection) | | | | | | +---------+ + + +--------+ + + | Problem | Menopausal | 627.2 | | | Active | 68932083 | | | symptoms | | | | | | +---------+ + + +--------+ + + | Problem | Other | G89.29 | | | Active | 55733895 | | | chronic | | | | | | | | pain | | | | | | +---------+ + + +--------+ + + | Problem | Right | | R10.31 | | Active | 952342422 | | | lower | | | | | | | | quadrant | | | | | | | | pain | | | | | | +---------+ + + +--------+ + + | Problem | Lower back | M54.5 | | | Active | 262063627 | | | pain | | | | | | +---------+ + + +--------+ + + | Problem | Lower | R10.30 | | | Active | 26538835 | | | abdominal | | | | | | | | pain | | | | | | +---------+ + + +--------+ + + ALLERGIES No Known Allergies SOCIAL HISTORY No smoking Hx information available PLAN OF CARE VITAL SIGNS MEDICATIONS No Known Medications RESULTS No Results PROCEDURES No Known procedures IMMUNIZATIONS No Known Immunizations"
[2017-08-20] MEDS ORDERED: TAMIFLU75 MG PO (13:32)
== END 2017-08-20 13:49 | disposition home or self-care (01) ==
LOC: ED 12:37
DX: J11.1 Influenza due to unidentified influenza virus with other respiratory manifestations (principal); J45.909 Unspecified asthma, uncomplicated; F17.200 Nicotine dependence, unspecified, uncomplicated; Z87.440 Personal history of urinary (tract) infections; Z88.6 Allergy status to analgesic agent; Z79.899 Other long term (current) drug therapy
CPT/HCPCS: 99283

== ENCOUNTER 2017-09-05 17:55 | Emergency (ER) | payer OTHER ==
[~2017-09-05] VITALS: Ht 154.9 cm; Wt 91.6 kg
[~2017-09-05 17:55] MED LIST changes: +TAMIFLU75 MG PO
== END 2017-09-05 18:11 | disposition home or self-care (01) ==
LOC: ED 17:55
DX: Z00.8 Encounter for other general examination (principal)

== ENCOUNTER 2017-09-05 18:20 | Emergency (ER) | payer OTHER ==
[~2017-09-05] VITALS: Ht 154.9 cm; Wt 91.6 kg
== END 2017-09-05 20:25 | disposition home or self-care (01) ==
LOC: ED 18:20
PROC: 0HQGXZZ Repair Left Hand Skin, External Approach (ICD-10-PCS; principal; 2017-09-05)
DX: S61.213A Laceration without foreign body of left middle finger without damage to nail, initial encounter (principal); J45.909 Unspecified asthma, uncomplicated; F17.200 Nicotine dependence, unspecified, uncomplicated; Z79.899 Other long term (current) drug therapy; W26.8XXA Contact with other sharp object(s), not elsewhere classified, initial encounter; Y99.0 Civilian activity done for income or pay
CPT/HCPCS: 12001; 90471; 90715; 99282

== ENCOUNTER 2018-05-09 19:21 | Emergency (ER) | payer SELFPAY ==
[~2018-05-09] VITALS: Ht 154.9 cm; Wt 82.1 kg
--- OUTSIDE RECORDS SUMMARY | ~2018-05-09 | XMS | Clinical Summary ---
Demographics + + + | Address | [address] | | | [place] [address] | + + + | Home Phone | | + + + | Preferred Language | Unknown | + + + | Marital Status | Unknown | + + + | Islam Affiliation | Unknown | + + + | Race | Unknown | + + + | Ethnic Group | Unknown | + + + Author + + + | Author | [facility] | + + + | Organization | [facility] | + + + | Address | Unknown | + + + | Phone | Unavailable | + + + Support + + +---------+ + | Name | Relationship | Address | Phone | + + +---------+ + | Silvia Bolaños | ECON | Unknown | | + + +---------+ + Care Team Providers + +------+ + | Care Termite Control Service Representative Name | Role | Phone | + +------+ + | JoshCarmen SEAN | PP | | + +------+ + Allergies + + + + + + | Active Allergy | Reactions | Severity | Noted | Comments | | | | | Date | | + + + + + + | Ibuprofen | Shortness of Breath | High | 05/29/20 | | | | | | 16 | | + + + + + + Current Medications + + +-------+---------+------+------+-------+ | Prescription | Sig. | Disp. | Refills | Star | End | Statu | | | | | | t | Date | s | | | | | | Date | | | + + +-------+---------+------+------+-------+ | VENTOLIN HFA 108 | | | | 09/2 | | Activ | | (90 BASE) MCG/ACT | | | | 5/20 | | e | | inhaler | | | | 16 | | | + + +-------+---------+------+------+-------+ | PREMPRO 0.625-5 MG | | | | 09/2 | | Activ | | per tablet | | | | 6/20 | | e | | | | | | 16 | | | + + +-------+---------+------+------+-------+ | cyclobenzaprine | | | | 10/0 | | Activ | | (FLEXERIL) 5 MG | | | | 3/20 | | e | | tablet | | | | 16 | | | + + +-------+---------+------+------+-------+ | fluticasone | | | | 10/0 | | Activ | | (FLONASE) 50 MCG/ACT | | | | 7/20 | | e | | nasal | | | | 16 | | | + + +-------+---------+------+------+-------+ | montelukast | | | | 09/1 | | Activ | | (SINGULAIR) 10 MG | | | | 7/20 | | e | | tablet | | | | 16 | | | + + +-------+---------+------+------+-------+ | SUDOGEST 30 MG | | | | 10/0 | | Activ | | tablet | | | | 3/20 | | e | | | | | | 16 | | | + + +-------+---------+------+------+-------+ | traZODone | Take 50 mg by mouth | | | | | Activ | | (DESYREL) 50 MG | nightly. | | | | | e | | tablet | | | | | | | + + +-------+---------+------+------+-------+ Active Problems + + + | Problem | Noted Date | + + + | Right carpal tunnel syndrome | 06/06/2016 | + + + Social History + +-------+ +--------+------+ | Tobacco Use | Types | Packs/Day | Years | Date | | | | | Used | | + +-------+ +--------+------+ | Current Some Day | | | | | | Smoker | | | | | + +-------+ +--------+------+ + +---+---+---+ | Smokeless Tobacco: | | | | | Never Used | | | | + +---+---+---+ + + +---------+ + | Alcohol Use | Drinks/We | oz/Week | Comments | | | ek | | | + + +---------+ + | Yes | | | | + + +---------+ + + + + | Sex Assigned at | Date Recorded | | | | + + + | Not on file | | + + + Last Filed Vital Signs + + + + | Vital Sign | Reading | Time Taken | + + + + | Blood Pressure | 119/57 | 05/29/2016 4:08 PM PDT | + + + + | Pulse | 90 | 05/29/2016 4:08 PM PDT | + + + + | Temperature | - | - | + + + + | Respiratory Rate | - | - | + + + + | Oxygen Saturation | 97% | 05/29/2016 4:08 PM PDT | + + + + | Inhaled Oxygen | - | - | | Concentration | | | + + + + | Weight | 95.3 kg (210 lb) | 05/29/2016 4:08 PM PDT | + + + + | Height | - | - | + + + + | Body Mass Index | - | - | + + + + Plan of Treatment + + + + + | Health Maintenance | Due Date | Last Done | Comments | + + + + + | Vaccine: | | | | | Dtap/Tdap/Td (1 - | 6 | | | | Tdap) | | | | + + + + + | Vaccine: | | | | | Pneumococcal 19-64 | 6 | | | | (PPSV23 only) Medium | | | | | Risk (1 of 1 - | | | | | PPSV23) | | | | + + + + + | Cervical Cancer | | | | | Screening (Pap) | 7 | | | + + + + + | Breast Cancer | | | | | Screening | 7 | | | | (Mammogram) | | | | + + + + + | Colon Cancer | | | | | Screening | 7 | | | | (Colonoscopy) | | | | + + + + + | Vaccine: Influenza | | | | | (#1) | 8 | | | + + + + + Results Not on filefrom Last 3 Months Insurance + +--------+ +------+-------+ + | Payer | Benefi | Subscriber | Type | Phone | Address | | | t Plan | ID | | | | | | / | | | | | | | Group | | | | | + +--------+ +------+-------+ + | MEDICAID | [employer] | [id number] | | | [address] | | | N | | | | [place], [place] | | | [place] | | | | [phone] | | | NETEZZA DEVELOPER | | | | | + +--------+ +------+-------+ + + +--------+ +--------+ + + | Guarantor Name | Accoun | Relation to | Date | Phone | Billing Address | | | t Type | Patient | of | | | | | | | | | | + +--------+ +--------+ + + | ALICIA VERA | Person | Self [birth year] Home: | [address] | | | al/Fam | | [phone] | [phone] | [place] [address] | | | roni | | | [phone] | | + +--------+ +--------+ + +"
--- OUTSIDE RECORDS SUMMARY | ~2018-05-09 | XMS | Clinical Summary ---
Demographics + + + | Address | [address] | | | [place] [address] | + + + | Home Phone | | + + + | Preferred Language | Unknown | + + + | Marital Status | Unknown | + + + | Adventism Affiliation | Unknown | + + + | Race | Unknown | + + + | Ethnic Group | Unknown | + + + Author + + + | Author | [facility] | + + + | Organization | [facility] | + + + | Address | Unknown | + + + | Phone | Unavailable | + + + Support + + +---------+ + | Name | Relationship | Address | Phone | + + +---------+ + | Silvia Bolaños | ECON | Unknown | | + + +---------+ + Care Team Providers + +------+ + | Care Transportation Specialist Name | Role | Phone | + [...] +------+-------+ + | MEDICAID | [employer] | [id number] | | | [address] | | | N | | | | [place], [place] | | | [place] | | | | [phone] | | | 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
[~2018-05-09 19:21] MED LIST changes: +ULTRAM50 MG PO
--- OUTSIDE RECORDS SUMMARY | 2018-05-09 19:26 | XMS ---
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 Anthoyn has no Care Guidelines for this patient. Meka VISIT COUNT (12 MO.) 6 [facility] [place] [facility] TOTAL 6 NOTE: Visits indicate total known visits. ED/C VISIT TRACKING (12 MO.) 05/09/2018 19:21 [facility] [place] TYPE: Emergency COMPLAINT: - L FOOT PAIN/NON INJURY 04/17/2018 09:29 [facility] [place] TYPE: Emergency COMPLAINT: - LOW BACK PAIN,NON INJURY DIAGNOSES: - Low back pain - Unspecified abdominal pain 09/05/2017 18:21 [facility] [place] TYPE: Emergency COMPLAINT: - LAC DIAGNOSES: - Civilian activity done for income or pay - Nicotine dependence, unspecified, uncomplicated - CONTACT WITH OTHER SHARP OBJECT(S), NEC, INITIAL E - Contact with other sharp object(s), not elsewhere classified, initial encounter - Laceration without foreign body of left middle finger without damage to nail, initial encounter - Unspecified asthma, uncomplicated - Other correction (current) drug therapy 09/05/2017 17:56 [facility] [place] TYPE: Emergency COMPLAINT: - LEFT MIDDLE FINGER LAC/MSE DIAGNOSES: - Encounter for other general examination 08/20/2017 12:38 [facility] [place] TYPE: Emergency COMPLAINT: - COUGH/CHEST PRESSURE DIAGNOSES: - Unspecified asthma, uncomplicated - Cough - Influenza due to unidentified influenza virus with other respiratory manifestations - Nicotine dependence, unspecified, uncomplicated - Personal history of urinary (tract) infections - Allergy status to analgesic agent status - Other terminal make up operator (current) drug therapy 06/22/2017 11:07 [facility] [place] TYPE: Emergency COMPLAINT: - BLOODY STOOL DIAGNOSES: - Unspecified asthma, uncomplicated - Other terminal make up operator (current) drug therapy - Allergy status to analgesic agent status - Nicotine dependence, unspecified, uncomplicated - Hemorrhage of anus and rectum - Melena INPATIENT VISIT TRACKING (12 MO.) No inpatient visits to display in this time frame [id number]
[2018-05-09] MEDS ORDERED: COLCHICINE0.6 M1 PO (19:49)
== END 2018-05-09 20:38 | disposition home or self-care (01) ==
LOC: ED 19:21
DX: M10.9 Gout, unspecified (principal); F17.200 Nicotine dependence, unspecified, uncomplicated; Z88.6 Allergy status to analgesic agent; Z79.899 Other long term (current) drug therapy
CPT/HCPCS: 99283

== ENCOUNTER 2019-04-21 06:49 | Emergency (ER) | payer OTHER ==
[~2019-04-21] VITALS: Ht 154.9 cm; Wt 98.4 kg
[~2019-04-21 06:49] MED LIST changes: +AMBIEN5 MG PO; +CEFUROXIME250 MG PO; +CIPRO500 MG PO; +COLCHICINE0.6 M1 PO; +ELIMITE60 GM TOP; +ZOLOFT100 MG PO
--- OUTSIDE RECORDS SUMMARY | 2019-04-21 06:54 | XMS ---
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 Care History Medical/Surgical 03/09/2019 [facility] - Patient is currently established with [facility]. If patient is seen in the ED during business hours. Please contact [facility] at [facility]. Care Recommendation: This patient has had 5 or more Emergency Department visits in the last 12 months.\T\nbsp; Patient requires education on the scope and purpose of the ED as an acute care provider not a Primary Care Provider and should not be utilized for chronic conditions.\T\nbsp; These are guidelines and the provider should exercise clinical judgment when providing care. 05/12/2018 [facility] - [facility] HAS CALLED PATIENT AND LEFT MESSAGES. - IF PATIENT IS SEEN IN THE ED, PATIENT NEEDS TO APPLY FOR MEDICAL BENEFITS. PATIENT MEDICAID BENEFITS ENDED SEPTEMBER 2017. - ONCE BENEFITS ARE ESTABLISHED [facility] CAN HELP PATIENT SET UP WITH A PRIMARY CARE PHYSICIAN. E.D. VISIT COUNT (12 MO.) 5 [facility] TOTAL 5 NOTE: Visits indicate total known visits. ED/UCC VISIT TRACKING (12 MO.) 04/21/2019 06:50 [facility] [place] TYPE: Emergency COMPLAINT: - ANKLE PAIN, INJ 03/11/2019 13:16 [facility] [place] TYPE: Emergency COMPLAINT: - MEDICATION REACTION DIAGNOSES: - Scabies - Allergy status to other drugs, medicaments and biological substances status - Unspecified asthma, uncomplicated - Urinary tract infection, site not specified - Other penitentiary (current) drug therapy - Nicotine dependence, unspecified, uncomplicated - Rash and other nonspecific skin eruption 03/06/2019 16:39 [facility] [place] TYPE: Emergency COMPLAINT: - SHARP RT UPPER SIDE PAIN DIAGNOSES: - Allergy status to analgesic agent status - Unspecified abdominal pain - Urinary tract infection, site not specified - Nicotine dependence, unspecified, uncomplicated - Unspecified asthma, uncomplicated 08/27/2018 22:50 [facility] [place] TYPE: Emergency COMPLAINT: - SOB,CHEST PAIN DIAGNOSES: - Other penitentiary (current) drug therapy - Influenza due to unidentified influenza virus with other respiratory manifestations - Unspecified asthma, uncomplicated - Fever, unspecified - Nicotine dependence, unspecified, uncomplicated - Allergy status to other drugs, medicaments and biological substances status 05/09/2018 19:21 [facility] [place] TYPE: Emergency COMPLAINT: - L FOOT PAIN/NON INJURY DIAGNOSES: - Gout, unspecified - Allergy status to analgesic agent status - Nicotine dependence, unspecified, uncomplicated - Other penitentiary (current) drug therapy - Pain in left ankle and joints of left foot INPATIENT VISIT TRACKING (12 MO.) No inpatient visits to display in this time frame [id number]
== END 2019-04-21 08:12 | disposition home or self-care (01) ==
LOC: ED 06:49
DX: S93.401A Sprain of unspecified ligament of right ankle, initial encounter (principal); F17.200 Nicotine dependence, unspecified, uncomplicated; J45.909 Unspecified asthma, uncomplicated; Z88.6 Allergy status to analgesic agent; X50.1XXA Overexertion from prolonged static or awkward postures, initial encounter
CPT/HCPCS: 73610; 99283

== ENCOUNTER 2019-06-09 07:30 | Day surgery (SDC) | payer OTHER ==
[~2019-06-09] VITALS: Ht 154.9 cm; Wt 93.4 kg
[~2019-06-09 07:30] MED LIST changes: +ALLERGY RELIEF10 M1 PO; +PYRIDIUM200 MG PO
--- NOTE | 2019-06-09 11:51 | NUR ---
06/09/19 [address] PT ARRIVED IN PACU WIDE AWAKE WITH NO C/O'S. L HAND ELEVATED ON PILLOW WITH ICE PRESENT. 1115 SITTING UP IN BED SIPPING ON JUICE. 1130 PT GETTING DRESSED AT BEDSIDE WITH RN STAND BY ASSIST. 1135 DC INSTRUCTIONS GIVEN. LEFT VIA W/C.
--- NOTE | 2019-06-10 09:37 | OR ---
[facility] [address], [place] [address] Signed DATE OF OPERATION: 06/09/2019 SURGEON: Stanley Hall MD PREOPERATIVE DIAGNOSIS: Carpal tunnel syndrome, left. POSTOPERATIVE DIAGNOSIS: Carpal tunnel syndrome, left. PROCEDURE PERFORMED: Carpal tunnel release. ANESTHESIA: [place] block with sedation. SPECIMENS AND COMPLICATIONS: There were no specimens or complications. TOURNIQUET TIME: About 20 minutes. WHAT WAS DONE: The patient was taken to the operating room. After anesthesia was induced and airway secured, the patient was positioned, prepped, and draped in the supine position. Left upper extremity was placed in the lead hand. The distal wrist flexion crease was outlined and a volar incision was made beginning at the distal wrist flexion crease extending distally for 2 cm in line with the anterior mid axial line of the 4th ray. Skin was divided sharply. Subcutaneous tissue was bluntly spread. A small self-retaining Heiss retractor was placed. The transverse volar carpal ligament was identified, gently swept clean with a small [place] elevator and was released with the tip of a #15 blade. We then put the Ragnell Benito under the distal flap, lifted it up, and decompress the median nerve into the palm. We then put the retractor underneath the proximal flap and again released the distal 3 cm of the antebrachial fascia completely releasing a significantly compromised median nerve. The wound was gently irrigated and closed in standard fashion. A sterile dressing was applied. The patient was awakened and taken recovery room, where she arrived in stable condition. Counts were correct and antibiotic protocols were followed. Electronically Signed By: STANLEY HALL MD 06/10/19 0937 PATIENT NAME: FLORIAN BOSS OPERATIVE REPORT DATE OF : 67 REPORT #: [id number] PHYSICIAN: STANLEY HALL MD PCP: IZABELLA CAMACHO DO REPORT IS CONFIDENTIAL AND NOT TO BE RELEASED WITHOUT AUTHORIZATION [address] [address] Signed Stanley Hall MD WFB/MODL /[id number] Copies: ~ Electronically Signed By: STANLEY HALL MD 06/10/19 0937 PATIENT NAME: FLORIAN BOSS OPERATIVE REPORT DATE OF : 67 REPORT #: [id number] PHYSICIAN: STANLEY HALL MD PCP: KARGAR,IZABELLA DO REPORT IS CONFIDENTIAL AND NOT TO BE RELEASED WITHOUT AUTHORIZATION
== END 2019-06-09 11:35 | disposition home or self-care (01) ==
LOC: OPS 07:30 → DS 10:45 → OPS 11:35
PROVIDERS: Orthopaedic Surgery
PROC: 01N50ZZ Release Median Nerve, Open Approach (ICD-10-PCS; principal; 2019-06-09 10:45)
DX: G56.02 Carpal tunnel syndrome, left upper limb (principal); F32.9 Major depressive disorder, single episode, unspecified; J45.909 Unspecified asthma, uncomplicated; G43.909 Migraine, unspecified, not intractable, without status migrainosus; Z88.6 Allergy status to analgesic agent; Z88.8 Allergy status to other drugs, medicaments and biological substances; Z79.899 Other long term (current) drug therapy
CPT/HCPCS: J0690; J1885; J2250; J2704; J7120

== ENCOUNTER 2019-10-22 09:13 | Emergency (ER) | payer OTHER ==
[~2019-10-22] VITALS: Ht 154.9 cm; Wt 93.4 kg
[2019-10-22] MEDS ORDERED: LAMICTAL25 MG PO (09:20)
== END 2019-10-22 10:35 | disposition home or self-care (01) ==
LOC: ED 09:13
DX: L73.9 Follicular disorder, unspecified (principal); F32.9 Major depressive disorder, single episode, unspecified; J45.909 Unspecified asthma, uncomplicated; F17.200 Nicotine dependence, unspecified, uncomplicated; Z88.1 Allergy status to other antibiotic agents; Z88.8 Allergy status to other drugs, medicaments and biological substances; Z79.899 Other long term (current) drug therapy
CPT/HCPCS: 81001; 99283

== ENCOUNTER 2020-08-27 14:19 | Emergency (ER) | payer OTHER ==
[~2020-08-27] VITALS: Ht 154.9 cm; Wt 95.3 kg
[~2020-08-27 14:19] MED LIST changes: +LAMICTAL25 MG PO; +LAMOTRIGINE25 MG PO; +ZOLPIDEM TARTRA10 MG PO
--- OUTSIDE RECORDS SUMMARY | 2020-08-27 14:22 | XMS ---
PreManage Notification: FLORIAN BOSS Security Mix House Tender Events No recent Security Events currently on file CRITERIA MET - Group Notification - [facility] - Has Care Guidelines - PDMP CARE PROVIDERS IZABELLA CAMACHO Internal Medicine 03/09/2019-Current PHONE: [phone] Anthony has no Care Guidelines for this patient. Care History Medical/Surgical 11/23/2019 [facility] No follow up visit scheduled with Dr. Camacho.\T\nbsp; Left voice mail with patient for return call.\T\nbsp; Patient should be educated on use of ED and schedule with PCP. 03/09/2019 [facility] - PATIENT HAS AN APT WITH PCP DR CAMACHO ON 04/30/19. - Patient is currently established with [facility]. If patient is seen in the ED during business hours. Please contact CHWs at [facility]. Care Recommendation: This patient has had 5 or more Emergency Department visits in the last 12 months.\T\nbsp; Patient requires education on the scope and purpose of the ED as an acute care provider not a Primary Care Provider and should not be utilized for chronic conditions.\T\nbsp; These are guidelines and the provider should exercise clinical judgment when providing care. 05/12/2018 [facility] - CHW HAS CALLED PATIENT AND LEFT MESSAGES. - IF PATIENT IS SEEN IN THE ED, PATIENT NEEDS TO APPLY FOR MEDICAL BENEFITS. PATIENT MEDICAID BENEFITS ENDED SEPTEMBER 2017. - ONCE BENEFITS ARE ESTABLISHED CHW CAN HELP PATIENT SET UP WITH A PRIMARY CARE PHYSICIANCharan Ackerman VISIT COUNT (12 MO.) 3 [facility] TOTAL 3 NOTE: Visits indicate total known visits. ED/UCC VISIT TRACKING (12 MO.) 08/27/2020 14:20 [facility] [place] TYPE: Emergency COMPLAINT: - LEFT HAND INJ 11/21/2019 19:16 [facility] [place] TYPE: Emergency COMPLAINT: - LEFT HAND PAIN DIAGNOSES: - Major depressive disorder, single episode, unspecified - Allergy status to other antibiotic agents - Nicotine dependence, unspecified, uncomplicated - Other nursing home (current) drug therapy - Pain in left finger(s) - Enthesopathy, unspecified - Allergy status to analgesic agent - Unspecified asthma, uncomplicated 10/22/2019 09:13 [facility] [place] TYPE: Emergency COMPLAINT: - BACK PAIN, URINE PROBLEM DIAGNOSES: - Allergy status to other drugs, medicaments and biological substances - Pain in thoracic spine - Nicotine dependence, unspecified, uncomplicated - Pain in thoracic spine - Other moth exterminator (current) drug therapy - Follicular disorder, unspecified - Unspecified asthma, uncomplicated - Major depressive disorder, single episode, unspecified - Allergy status to other antibiotic agents INPATIENT VISIT TRACKING (12 MO.) No inpatient visits to display in this time frame [id number]
== END 2020-08-27 17:20 | disposition home or self-care (01) ==
LOC: ED 14:19
DX: S60.222A Contusion of left hand, initial encounter (principal); J45.909 Unspecified asthma, uncomplicated; F17.200 Nicotine dependence, unspecified, uncomplicated; Z88.8 Allergy status to other drugs, medicaments and biological substances; Z88.1 Allergy status to other antibiotic agents; Z79.899 Other long term (current) drug therapy; W18.30XA Fall on same level, unspecified, initial encounter
CPT/HCPCS: 73130; 99283-25

== ENCOUNTER 2021-06-15 06:26 | Emergency (ER) | payer OTHER ==
[~2021-06-15] VITALS: Ht 154.9 cm; Wt 97.6 kg
--- OUTSIDE RECORDS SUMMARY | 2021-06-15 06:28 | XMS ---
PreManage Notification: FLORIAN BOSS Security Ground Host/Hostess Events No recent Security Events currently on file CRITERIA MET - PDMP - Group Notification CARE PROVIDERS IZABELLA CAMACHO Internal Medicine 03/09/2019-Current PHONE: [phone] Anthony has no Care Guidelines for this patient. Care History Medical/Surgical 11/23/2019 [facility] No follow up visit scheduled with Dr. Camacho.\T\nbsp; Left voice mail with patient for return call.\T\nbsp; Patient should be educated on use of ED and schedule with PCP. 03/09/2019 [facility] - PATIENT HAS AN APT WITH PCP DR CAMACHO ON 04/30/19. - Patient is currently established with [facility]. If patient is seen in the ED during business hours. Please contact CHWs at [facility]. Care Recommendation: This patient has had 5 or more Emergency Department visits in the last 12 months.\T\nbsp; Patient requires education on the scope and purpose of the ED as an acute care provider not a Primary Care Provider and should not be utilized for chronic conditions.\T\nbsp; These are guidelines and the provider should exercise clinical judgment when providing care. 05/12/2018 [facility] - CHW HAS CALLED PATIENT AND LEFT MESSAGES. - IF PATIENT IS SEEN IN THE ED, PATIENT NEEDS TO APPLY FOR MEDICAL BENEFITS. PATIENT MEDICAID BENEFITS ENDED SEPTEMBER 2017. - ONCE BENEFITS ARE ESTABLISHED CHW CAN HELP PATIENT SET UP WITH A PRIMARY CARE PHYSICIAN. Meka VISIT COUNT (12 MO.) 2 [facility] TOTAL 2 NOTE: Visits indicate total known visits. ED/UCC VISIT TRACKING (12 MO.) 06/15/2021 06:27 [facility] [place] TYPE: Emergency COMPLAINT: - LOWER BACK PAIN, NAUSEA 08/27/2020 14:[address] [facility] [place] TYPE: Emergency COMPLAINT: - LEFT HAND INJ DIAGNOSES: - Allergy status to other drugs, medicaments and biological substances - Contusion of left hand, initial encounter - Nicotine dependence, unspecified, uncomplicated - Other retirement (current) drug therapy - Fall on same level, unspecified, initial encounter - Allergy status to other antibiotic agents - Unspecified asthma, uncomplicated - Pain in left hand INPATIENT VISIT TRACKING (12 MO.) No inpatient visits to display in this time frame [email or web address]
[2021-06-15] MEDS ORDERED: AMBIEN10 MG PO (06:51)
[2021-06-15] MEDS ORDERED: CELECOXIB100 MG PO (06:52)
[2021-06-15] MEDS ORDERED: LAMOTRIGINE25 MG PO (06:52)
[2021-06-15] MEDS ORDERED: PREDNISONE20 MG PO (10:17)
== END 2021-06-15 10:41 | disposition home or self-care (01) ==
LOC: ED 06:26
DX: S39.012A Strain of muscle, fascia and tendon of lower back, initial encounter (principal); X58.XXXA Exposure to other specified factors, initial encounter; J45.909 Unspecified asthma, uncomplicated; F17.200 Nicotine dependence, unspecified, uncomplicated; Z88.8 Allergy status to other drugs, medicaments and biological substances; Z88.1 Allergy status to other antibiotic agents; Z79.899 Other long term (current) drug therapy
CPT/HCPCS: 74177; 80053; 81001; 83690; 85025; 99284-25; J1100; Q9967

== ENCOUNTER 2021-09-15 12:02 | Emergency (ER) | payer OTHER ==
[~2021-09-15] VITALS: Ht 154.9 cm; Wt 97.5 kg
[~2021-09-15 12:02] MED LIST changes: +AMBIEN10 MG PO; +CELECOXIB100 MG PO
--- OUTSIDE RECORDS SUMMARY | 2021-09-15 12:06 | XMS ---
PreManage Notification: FLORIAN BOSS Security Telesales Representative Events No recent Security Events currently on file CRITERIA MET - PDMP - Group Notification - [facility] - Has Care Guidelines CARE PROVIDERS IZABELLA CAMACHO Internal Medicine 06/19/2021-Current PHONE: Unknown Anthony has no Care Guidelines for this patient. Care History Medical/Surgical 06/19/2021 [facility] Left voicemail advising to follow up with PCP Dr. Camacho if necessary. 11/23/2019 [facility] No follow up visit scheduled with Dr. Camacho.\T\nbsp; Left voice mail with patient for return call.\T\nbsp; Patient should be educated on use of ED and schedule with PCP. 03/09/2019 [facility] - PATIENT HAS AN APT WITH PCP DR CAMACHO ON 04/30/19. - Patient is currently established with [facility]. If patient is seen in the ED during business hours. Please contact CHWs at [facility]. Care Recommendation: This patient has had 5 or more Emergency Department visits in the last 12 months.\T\nbsp; Patient requires education on the scope and purpose of the ED as an acute care provider not a Primary Care Provider and should not be utilized for chronic conditions.\T\nbsp; These are guidelines and the provider should exercise clinical judgment when providing care. E.D. VISIT COUNT (12 MO.) 2 [facility] TOTAL 2 NOTE: Visits indicate total known visits. ED/UCC VISIT TRACKING (12 MO.) 09/15/2021 12:04 [facility] [place] TYPE: Emergency COMPLAINT: - L SIDE BACK PAIN 06/15/2021 06:27 [facility] [place] TYPE: Emergency COMPLAINT: - LOWER BACK PAIN, NAUSEA DIAGNOSES: - Strain of muscle, fascia and tendon of lower back, initial encounter - Exposure to other specified factors, initial encounter - Allergy status to other drugs, medicaments and biological substances - Nicotine dependence, unspecified, uncomplicated - Unspecified abdominal pain - Unspecified asthma, uncomplicated - Other custodial (current) drug therapy - Allergy status to other antibiotic agents INPATIENT VISIT TRACKING (12 MO.) No inpatient visits to display in this time frame [id number]
[2021-09-15] MEDS ORDERED: PREDNISONE20 MG PO (13:23)
[2021-09-15] MEDS ORDERED: HYDROCODON-ACE1 EA10 PO (13:23)
== END 2021-09-15 13:41 | disposition home or self-care (01) ==
LOC: ED 12:02
DX: M54.42 Lumbago with sciatica, left side (principal); J45.909 Unspecified asthma, uncomplicated; F17.200 Nicotine dependence, unspecified, uncomplicated; Z88.8 Allergy status to other drugs, medicaments and biological substances; Z88.1 Allergy status to other antibiotic agents; Z79.899 Other long term (current) drug therapy
CPT/HCPCS: 99283; A9270; J7512

== ENCOUNTER 2022-02-02 08:14 | Emergency (ER) | payer OTHER ==
[~2022-02-02] VITALS: Ht 154.9 cm; Wt 97.6 kg
[~2022-02-02 08:14] MED LIST changes: +HYDROCODON-ACE1 EA10 PO
--- OUTSIDE RECORDS SUMMARY | 2022-02-02 08:17 | XMS ---
PreManage Notification: FLORIAN BOSS Security Instructional Developer Events No recent Security Events currently on file CRITERIA MET - PDMP - Group Notification - [facility] - Has Care Guidelines CARE PROVIDERS IZABELLA CAMACHO Internal Medicine 06/19/2021-Current PHONE: Unknown Anthony has no Care Guidelines for this patient. Care History Medical/Surgical 09/18/2021 [facility] - Patient is currently established with [facility]. If patient is seen in the ED during business hours. Please contact CHWs at [facility]. Care Recommendation: This patient has had 5 or more Emergency Department visits in the last 12 months.\T\nbsp; Patient requires education on the scope and purpose of the ED as an acute care provider not a Primary Care Provider and should not be utilized for chronic conditions.\T\nbsp; These are guidelines and the provider should exercise clinical judgment when providing care. 09/18/2021 [facility] Advised patient to follow up with PCP for non life-threatening medical treatment. 06/19/2021 [facility] Left voicemail advising to follow up with PCP Dr. Camacho if necessary. E.D. VISIT COUNT (12 MO[address] [facility] TOTAL 3 NOTE: Visits indicate total known visits. ED/UCC VISIT TRACKING (12 MO.) 02/02/2022 08:15 [facility] [place] TYPE: Emergency COMPLAINT: - L SIDE PAIN/INJURY 09/15/2021 12:04 [facility] [place] TYPE: Emergency COMPLAINT: - L SIDE BACK PAIN DIAGNOSES: - Unspecified asthma, uncomplicated - Lumbago with sciatica, left side - Allergy status to other drugs, medicaments and biological substances - Other detention (current) drug therapy - Allergy status to other antibiotic agents - LOW BACK PAIN, UNSPECIFIED - Nicotine dependence, unspecified, uncomplicated 06/15/2021 06:27 [facility] [place] TYPE: Emergency COMPLAINT: - LOWER BACK PAIN, NAUSEA DIAGNOSES: - Strain of muscle, fascia and tendon of lower back, initial encounter - Exposure to other specified factors, initial encounter - Allergy status to other drugs, medicaments and biological substances - Nicotine dependence, unspecified, uncomplicated - Unspecified abdominal pain - Unspecified asthma, uncomplicated - Other oysterman (current) drug therapy - Allergy status to other antibiotic agents INPATIENT VISIT TRACKING (12 MO.) No inpatient visits to display in this time frame [id number]
[2022-02-02] MEDS ORDERED: HYDROCODON-ACE1 EA11 PO (09:25)
== END 2022-02-02 09:35 | disposition home or self-care (01) ==
LOC: ED 08:14
DX: S76.312A Strain of muscle, fascia and tendon of the posterior muscle group at thigh level, left thigh, initial encounter (principal); S20.212A Contusion of left front wall of thorax, initial encounter; W01.0XXA Fall on same level from slipping, tripping and stumbling without subsequent striking against object, initial encounter; F17.200 Nicotine dependence, unspecified, uncomplicated; Z88.8 Allergy status to other drugs, medicaments and biological substances; Z88.1 Allergy status to other antibiotic agents; Z79.899 Other long term (current) drug therapy; Z79.891 Long term (current) use of opiate analgesic; Z79.52 Long term (current) use of systemic steroids
CPT/HCPCS: 71101; 73552; 99283-25; A9270

== ENCOUNTER 2022-04-20 09:46 | Emergency (ER) | payer OTHER ==
[~2022-04-20] VITALS: Ht 154.9 cm; Wt 99.4 kg
[~2022-04-20 09:46] MED LIST changes: +HYDROCODON-ACE1 EA11 PO
--- OUTSIDE RECORDS SUMMARY | 2022-04-20 09:48 | XMS ---
PreManage Notification: FLORIAN BOSS Security Mail Handler Events No recent Security Events currently on file CRITERIA MET - Group Notification - PDMP - [facility] - Has Care Guidelines CARE PROVIDERS IZABELLA CAMACHO Internal Medicine 06/19/2021-Current PHONE: Unknown Anthony has no Care Guidelines for this patient. Care History Medical/Surgical 09/18/2021 [facility] - Patient is currently established with [facility]. If patient is seen in the ED during business hours. Please contact CHWs at [facility]. Care Recommendation: This patient has had 5 or more Emergency Department visits in the last 12 months.\T\nbsp; Patient requires education on the scope and purpose of the ED as an acute care provider not a Primary Care Provider and should not be utilized for chronic conditions.\T\nbsp; These are guidelines and the provider should exercise clinical judgment when providing care. 09/18/2021 [facility] Advised patient to follow up with PCP for non life-threatening medical treatment. 06/19/2021 [facility] Left voicemail advising to follow up with PCP Dr. Camacho if necessary. E.D. VISIT COUNT (12 MO.) [address] [facility] TOTAL 4 NOTE: Visits indicate total known visits. 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 steroids - Fall on same level from slipping, tripping and stumbling without subsequent striking against object, initial encounter - Allergy status to other drugs, medicaments and biological substances - jail (current) use of opiate analgesic - Strain of muscle, fascia and tendon of the posterior muscle group at thigh level, left thigh, initial encounter - Chest pain, unspecified - Other hand wood sander (current) drug therapy - Allergy status to other antibiotic agents - Contusion of left front wall of thorax, initial encounter - Nicotine dependence, unspecified, uncomplicated 09/15/2021 12:04 [facility] [place] TYPE: Emergency COMPLAINT: - L SIDE BACK PAIN DIAGNOSES: - LOW BACK PAIN, UNSPECIFIED - Allergy status to other antibiotic agents - Allergy status to other drugs, medicaments and biological substances - Unspecified asthma, uncomplicated - Nicotine dependence, unspecified, uncomplicated - Low back pain, unspecified - Other hand wood sander (current) drug therapy - Lumbago with sciatica, left side 06/15/2021 06:27 [facility] [place] TYPE: Emergency COMPLAINT: - LOWER BACK PAIN, NAUSEA DIAGNOSES: - Other shelter (current) drug therapy - Unspecified abdominal pain - Allergy status to other drugs, medicaments and biological substances - Strain of muscle, fascia and tendon of lower back, initial encounter - Allergy status to other antibiotic agents - Unspecified asthma, uncomplicated - Nicotine dependence, unspecified, uncomplicated - Exposure to other specified factors, initial encounter INPATIENT VISIT TRACKING (12 MO.) No inpatient visits to display in this time frame [email or web address]
[2022-04-20] MEDS ORDERED: PREDNISONE20 MG PO (11:22)
== END 2022-04-20 11:35 | disposition home or self-care (01) ==
LOC: ED 09:46
DX: J45.901 Unspecified asthma with (acute) exacerbation (principal); J06.9 Acute upper respiratory infection, unspecified; F17.200 Nicotine dependence, unspecified, uncomplicated; Z88.6 Allergy status to analgesic agent; Z88.1 Allergy status to other antibiotic agents; Z20.822 Contact with and (suspected) exposure to COVID-19
CPT/HCPCS: 87502; 99284; C9803; J7512; U0003

== ENCOUNTER 2022-12-15 19:07 | Emergency (ER) | payer OTHER ==
[~2022-12-15] VITALS: Ht 154.9 cm; Wt 99.3 kg
--- OUTSIDE RECORDS SUMMARY | 2022-12-15 19:10 | XMS ---
PreManage Notification: FLORIAN BOSS Security Assistant Professor Of Philosophy Events No recent Security Events currently on file CRITERIA MET - Group Notification - PDMP - [facility] - Has Care Guidelines CARE PROVIDERS -, John- Dentist: Die Maker Apprentice [facility] PHONE: [phone] IZABELLA CAMACHO Internal Medicine 06/19/2021-Current PHONE: Unknown Anthony has no Care Guidelines for this patient. Care History Medical/Surgical 09/18/2021 [facility] - Patient is currently established with [facility]. If patient is seen in the ED during business hours. Please contact CHWs at [facility]. Care Recommendation: This patient has had 5 or more Emergency Department visits in the last 12 months.\T\nbsp; Patient requires education on the scope and purpose of the ED as an acute care provider not a Primary Care Provider and should not be utilized for chronic conditions.\T\nbsp; These are guidelines and the provider should exercise clinical judgment when providing care. 09/18/2021 [facility] Advised patient to follow up with PCP for non life-threatening medical treatment. 06/19/2021 [facility] Left voicemail advising to follow up with PCP Dr. Camacho if necessary. Mek[facility] (12 MO.) [facility] NOTE: Visits indicate total known visits. ED/UCC VISIT TRACKING (12 MO.) [facility] COMPLAINT: - COUGH,SORE THROAT AND SOB 04/20/2022 09:47 [facility] [place] TYPE: Emergency COMPLAINT: - EARS POPPING, CHEST CONGESTION DIAGNOSES: - Acute pharyngitis, unspecified - Acute upper respiratory infection, unspecified - Allergy status to analgesic agent - Allergy status to other antibiotic agents - Contact with and (suspected) exposure to COVID-19 - Nicotine dependence, unspecified, uncomplicated - Unspecified asthma with (acute) exacerbation 02/02/2022 08:15 [facility] [place] TYPE: Emergency COMPLAINT: - L SIDE PAIN/INJURY DIAGNOSES: - Allergy status to other antibiotic agents - Allergy status to other drugs, medicaments and biological substances - Chest pain, unspecified - Contusion of left front wall of thorax, initial encounter - Fall on same level from slipping, tripping and stumbling without subsequent striking against object, initial encounter - [facility] (current) use of opiate analgesic - [facility] (current) use of systemic steroids - Nicotine dependence, unspecified, uncomplicated - Other fci (current) drug therapy - Strain of muscle, fascia and tendon of the posterior muscle group at thigh level, left thigh, initial encounter INPATIENT VISIT TRACKING (12 MO.) No inpatient visits to display in this time frame [email or web address]
[2022-12-15] MEDS ORDERED: PROMETHAZINE-D473 M1 PO (20:44)
[2022-12-15] MEDS ORDERED: AMLODIPINE BESYL5 MG PO (20:44)
[2022-12-15 20:55] VITALS: BP 130/76
== END 2022-12-15 20:56 | disposition home or self-care (01) ==
LOC: ED 19:07
DX: J20.8 Acute bronchitis due to other specified organisms (principal); J45.909 Unspecified asthma, uncomplicated; F17.200 Nicotine dependence, unspecified, uncomplicated; Z20.822 Contact with and (suspected) exposure to COVID-19; Z88.1 Allergy status to other antibiotic agents; Z88.6 Allergy status to analgesic agent; Z79.899 Other long term (current) drug therapy
CPT/HCPCS: 87502; C9803; U0003